=== PATIENT | male | born 1940 | race Caucasian/White ===

== ENCOUNTER 2016-05-31 02:35 | Inpatient (IN) | payer MEDICARE ==
[2016-05-31] VITALS (9 sets, daily range): BP systolic 92–103; BP diastolic 62–71; PULSE 73–124; RESP 18–24; O2SAT 92–100
[~2016-05-31] VITALS: Ht 182.9 cm; Wt 69.9 kg
[2016-05-31] MEDS ORDERED: Polyethylene Glycol (PEG) 17 Gm Powder PO PRN (04:40)
[2016-05-31] MEDS ORDERED: Senna-Docusate 8.6-50 mg Tablet PO PRN (04:40)
[2016-05-31] MEDS ORDERED: Ondansetron 2 mg/mL 2 mL Inj IVPUSH PRN (04:40)
[2016-05-31] MEDS ORDERED: Alum-Mag Hydrox-Simeth 30 mL Suspension PO PRN (04:40)
--- NOTE | 2016-05-31 05:15 | ABG ---
DateTimeAnalyzed 05:10:00 -_ pH ____7.410 - 7.350 7.450 pCO2 ___45.2__ -mmHg 35.0 45.0 pO2 ___99.6__ -mmHg 69.0 116 HCO3- ___28.1__ -mmol/L 22.0 26.0 ABE ____3.5__ -mmol/L -2.0 2.0 tHb ___10.6__ -g/dL O2Hb ___95.3__ -% COHb ____1.4__ -% MetHb ____1.1__ -% sO2 ___97.7__ -% 25.0 FIO2 ___28.0__ -% Drawn By MM - Date/Time Notified____ 05:15:00 -_ Spontaneous_RR ___14.0__ -b/min Liter_Flow ____2.0__ -L/min Oxygen Device 1 _oxy-mask - Notified By MM - Notified Whom dr fuimaono - B 761 -mmHg tO2 ___14.4__ -Vol% Demond test N/A -
[2016-05-31] MEDS ORDERED: WARF5TAB7 PO (06:04)
[2016-05-31] MEDS ORDERED: FLUD0.1T PO (06:04)
[2016-05-31] MEDS ORDERED: OMEP40CA36 PO (06:04)
[2016-05-31] MEDS ORDERED: CITA10TA9 PO (06:04)
[2016-05-31] MEDS ORDERED: SEVE800T7 PO (06:04)
[2016-05-31] MEDS ORDERED: ATOR80TA77 PO (06:04)
[2016-05-31] MEDS ORDERED: WARF2.5T82 PO (06:04)
[2016-05-31] MEDS ORDERED: METO-272 PO (06:04)
--- NOTE | 2016-05-31 06:34 | PCM.HPMED ---
Subjective Date of Service May 31, 2016 Primary Provider: Admitting Physician: Liam Tim MD Primary Care Physician: Gabo Attending Physician: Liam Tim MD Admit Status: Direct Admit (From [facility]), Full Admit, Remote Telemetry Chief Complaint: Confusion with shortness of breathe History of Present Illness: 76 yo man with ESRD on dialysis, Chronic A fib on Coumadin, Pulmonary embolism and Hypertension who was transfer from [facility] for dialysis due to Acute congestive heart failure Patient poor historian with confusion currently. was not present when patient arrived and records gathered from limited documents from [facility]. Nurse reported that patient seems confused and "distant". He was evaluated at the [facility] and had a Chest X ray that showed no pneumonia. Work up at [facility] showed Chest X ray finding consistent with Congestive heart failure. BNP elevated. Patient was not on any diuretic therapy and was a dialysis dependent and a request to transfer was discussed with Dr Ang, Hyster Driver. Review of Systems: unable to obtain as patient was confused Allergies Coded Allergies: ertapenem (Verified Allergy, Severe, Confusion, 05/31/16) benzoin (Verified Allergy, Unknown, Rash,Itching,, 05/31/16) ciprofloxacin (Verified Allergy, Unknown, Gout, 05/31/16) NSAIDS (Non-Steroidal Anti-Inflamma (Verified Adverse Reaction, Unknown, Reduced Kidney Function, 05/31/16) lisinopril (Verified Adverse Reaction, Unknown, Cough, 05/31/16) Home Medications From [facility] records" Coumadin 2.5 mg Sun and Wed then 5 mg M., Fri and Sat Atorvastatin 80 mg HS Metoprolol 25 mg daily Citalopram 10 mg daily Renvela 1600 mg tid Omeprazole 40 mg daily Fludrocortisone 0.1 mg bid PMH Chronic Atrial fibrillation on anticoagulations ESRD on hemodialysis Depression Pulmonary embolism Dyslipidemia . Surgical History Defibrillator placement Back surgery Embolectomy surgery for Pulmonary embolism Family History Unable to obtain due to confusion Social History Hx Alcohol Use: No Hx Substance Use: No Hx Tobacco Use: Yes Smoking Status: Former Smoker Living Arrangement: with Family (with ) Exam Vital Signs Vital Sign - Last Date Time Temp Pulse Resp B/P Pulse Ox O2 Delivery O2 Flow Rate FiO2 05/31/16 04:35 36.9 94 24 98/71 95 Room Air Exam General: Awake but appears confuse and mild respiratory distress Eyes: PERRLA, Scleral Anicteric Mouth: Mouth Normal, Mucous Membranes dry Neck: Supple, no Thyromegaly, trachea central. Chest & Lungs: scattered rhonci Cardiovascular: Normal S1, Normal S2, No Murmurs/Rubs/Gallops, irregularly irregular (No JVD, no peripheral edema) Pulses: Radial (present and equal), Dorsalis Pedi (present and equal) Abdomen: Soft, Non-tender, Non-distended, Normoactive bowel tones. Musculoskeletal: Unremarkable. Normal range of motion, no swollen or erythematous joints Extremities: No edema, no cyanosis, no clubbing. Skin: No rashes. Warm and dry, no erythematous areas Neurological: Grossly neurologically intact, has generalized weakness, Normal Speech, Sensation Intact Lymphatic: Lymph nodes Cervical and Axillary not palpable. Lab and Diagnostics Labs From [facility]: WBC 4.5 Hgb 12.4 Plt 172 Na 142 K 4.5 BUN 45 Cr 4.5 Glucose 104 Liver function test normal BNP > 5000 INR 3.6 Troponin 0.22 CPK 120 ABG pH 7.422 p CO2 46.9 p02 29.6 X-Rays, CTs and MRIs Chest X ray from [facility]: Showed finding consistent with CHF, central vascular and interstitial congestion. Retrocardiac opacity suggestive of atelectasis, edema and small effusion Assessment & Plan 76 yo man with ESRD on dialysis, Chronic A fib on Coumadin, Pulmonary embolism and Hypertension who was transfer from [facility] for dialysis due to Acute congestive heart failure 1. Acute Congestive Heart Failure. Present on admission Chronicity unclear as no echo records available. ABG showed Hypoxia with no CO2 retention with normal pH. Differential diagnosis includes Pneumonia, possible the Chest X ray did not show any infiltrates as patient is intravascular depleted. - monitor on telemetry, monitor weight - unclear if patient responds to diuretic but will pursue dialysis this morning - trending troponin overnight with initial values in normal range - plan to request records from [facility] for review - complete echo requested 2. Acute encephalopathy. Present on admission Etiology unclear but consider Uremia or Metabolic - avoid psychoactive medications due to increased risk of Delirium 3. Endstage renal disease on dialysis Unclear if patient has missed any session. Suspect Hypertensive Nephrosclerosis is the cause - Dr Ang consulted planning for dialysis this morning - No hyperkalemia or acidosis noted 4. Chronic Atrial fibrillation on Coumadin - monitor on telemetry - continue Metoprolol for rate control - Pharmacy to manage daily Coumadin dosing - Acetaminophen as needed for mild pain/fever/headache - Bowel regimen as needed - Antiemetic as needed Patient admitted under inpatient status with expected length of stay > 2 midnights for severity of present symptoms, complexities of treatment plan and risk for adverse event . Resuscitation Status: DNR/DNI:Do Not Resuscitate/Intubate (will discuss with code status) Liam Tim MD May 31, 2016 04:39
[2016-05-31 07:43] LABS: BASOPHILS % (AUTO) 0.2 % (0-3); EOSINOPHILS % (AUTO) 0 % (0-5); MONOCYTES % (AUTO) 7.3 % (4-12); Mean Corpuscular Hemoglobin 27.9 pg (27.0-35.0); Mean Corpuscular Volume 86.3 fL (81-100); Platelet Count 131 bil/L (150-400)
[2016-05-31 07:45] LABS: INR 4.24 ratio
[2016-05-31 08:15] LABS: TROPONIN T 1.34 ug/L (0.0-0.011)
[2016-05-31] MEDS: Sodium Chloride LOK Flush 10 mL Syringe IVFLUSH SCH ×2 (08:30→17:28)
--- NOTE | 2016-05-31 09:01 | DRSVH ---
PROCEDURE: X-RAY CHEST ONE VIEW, PORTABLE ([id number]) INDICATIONS: 76-year-old male in respiratory distress. TECHNIQUE: One view of the chest was acquired. COMPARISON: None available. FINDINGS: Surgical changes and devices: Left chest wall biventricular pacer/ICD is present. Lungs and pleura: No pleural effusions or pneumothorax. There are asymmetric patchy left mid and low er lung opacities. Mediastinum: There is enlargement of the main pulmonary artery. There is moderate cardiomegaly as wel l. There is aortic atherosclerosis. Bones and chest wall: No suspicious bony lesions. There is superior right humeral head migration, w ith narrowed acromiohumeral interval. Overlying soft tissues appear unremarkable. IMPRESSION: 1. Left mid and lower lung scarring/atelectasis, with possible superimposed retrocardiac pneumonia or aspiration. 2. Moderate cardiomegaly. Enlarged main pulmonary artery would be consistent with background pulmonar y arterial hypertension. 3. Changes of right shoulder rotator cuff arthropathy. Dictated by: Stewart Diaz M.D. on 05/31/2016 at 8:57 Approved by: Stewart Diaz M.D. on 05/31/2016 at 9:00
[2016-05-31] MEDS: Albuterol-Ipratropium 3 mL Inhalation Solution NEB SCH ×3 (09:31→21:14)
--- NOTE | 2016-05-31 09:39 | CONS ---
[address] [address] CONSULTATION REPORT PATIENT: LOIS DOHERTY : 1940 MR#: [id number] ADMIT: 05/31/2016 JOB ID: [id number] DATE OF SERVICE: 05/31/2016 RENAL CONSULTATION: HISTORY: The patient is a rather unfortunate 76-year-old white male who has a history of end-stage renal disease. He was transferred from [facility] early this morning where he was admitted for presumed congestive heart failure. Renal consultation is being sought for further management of his end-stage renal disease. The patient is semi comatose and is unable to give any information nor is there any family member here to assist. He is on three times a week dialysis. However, I am not sure what days he dialyzes at or where he dialyzes. I am unsure as to what the etiology of his end-stage renal disease is. He was transferred to initially [facility] for apparently some respiratory problems and decreasing mental status. A chest x-ray was reported as having congestive heart failure. However, there were no other findings noted. His blood pressure is in the 90s, and from reading through his medications, it appears he most likely is chronically hypotensive from either peripheral neuropathy and for severe systolic heart failure. Unfortunately, there is little other information as far as the events leading up to his hospitalization. PAST MEDICAL HISTORY: Is significant for: 1. End-stage renal disease-dialysis dependent. 2. Atrial fibrillation. 3. Pulmonary embolism. 4. Past medical history is also significant for coronary artery disease and it appears that he has had open-heart surgery in the past. PAST SURGICAL HISTORY: Is significant for: 1. Some type of back surgery. 2. AICD placement. 3. Pneumonectomy. 4. Shoulder surgery. ALLERGIES: He is allergic to NONSTEROIDALS, BENZOINS, CIPROFLOXACIN, ERTAPENEM and LISINOPRIL with unknown reactions. SOCIAL HISTORY: He denies the current use of alcohol, tobacco or illicit drugs and lives with his and apparently has been in some declining health. FAMILY HISTORY: Is unobtainable. MEDICATIONS: At time of admission included atorvastatin, citalopram, Megace, , warfarin, cortisone, metoprolol and omeprazole. PHYSICAL EXAMINATION: Revealed a chronically ill, cachectic appearing 76-year-old gentleman who was minimally responsive to painful stimuli. HEENT examination is remarkable for pale sclerae. Neck is supple without adenopathy or thyromegaly. There was some evjn-nn-adoeajsu jugular venous distention at 45 degrees. Lungs showed scattered rhonchi, much more pronounced on the right as compared to the left with some diffuse end-expiratory wheezes noted. Heart was irregularly regular. Abdomen is soft with some diminished bowel sounds. There was no tenderness, rebound, guarding, masses or hepatosplenomegaly. Extremities did not show any evidence of any clubbing, cyanosis or edema. Skin turgor is fair and there is no evidence of any rashes. Her most recent lab obtained late yesterday showed a sodium of 142, potassium 4.5, chloride of 101, bicarbonate of 30, BUN and creatinine were 45 and 4.5, respectively. His glucose is 104. Liver function studies were remarkable for elevated alkaline phosphatase at 243 and a lactic acid of 2.0. IMPRESSION: 1. End-stage renal disease-dialysis dependent. 2. Pulmonary congestion most likely secondary to either bronchitis or pneumonia. 3. Acute congestive heart failure. RECOMMENDATION: I am very concerned as to his pulmonary status and would like to get a chest x-ray, as his lung sounds are more consistent with a pneumonic or a bronchitic process rather than congestive heart failure. I would also like to order DuoNeb treatments and try to enhance his pulmonary toilet. I will also make arrangements for him to be dialyzed today for 3.5 hours on a Revaclear dialyzer, 3 potassium bath, no heparin and try to take 1-2 L of fluid off. Once again, I would like to thank you for allowing me to participate in the care of this rather unfortunate patient. I will be following him closely with you.
[2016-05-31] MEDS ORDERED: MIDO5TAB PO (10:41)
[2016-05-31] MEDS ORDERED: DIPH1TAB PO (10:41)
[2016-05-31] MEDS ORDERED: vit b12 (10:41)
[2016-05-31] MEDS ORDERED: CYAN500 PO (10:55)
[2016-05-31] MEDS ORDERED: Piperacillin-Tazo 3.375 Gm Inj 3.375 GM in Dextrose 5% Minibag Plus 50 ML IV ONE (20:30)
[2016-06-01] VITALS (10 sets, daily range): BP systolic 95–109; BP diastolic 47–71; PULSE 67–145; RESP 16–24; O2SAT 90–96
[2016-06-01] MEDS: Sodium Chloride LOK Flush 10 mL Syringe IVFLUSH SCH ×4 (00:35→21:35)
[2016-06-01] MEDS: Albuterol-Ipratropium 3 mL Inhalation Solution NEB SCH ×4 (01:48→20:30)
[2016-06-01] MEDS: MeTOProlol XL 25 mg ER24 Tablet PO SCH (08:18)
[2016-06-01] MEDS ORDERED: Piper-Tazo 3.375 Gm/50 mL D5W Minibag Plus - Q8H over 4 hrs IV SCH ×2 (08:30)
[2016-06-01 08:33] LABS: BASOPHILS % (AUTO) 0.2 % (0-3); EOSINOPHILS % (AUTO) 0.2 % (0-5); MONOCYTES % (AUTO) 8.1 % (4-12); Mean Corpuscular Hemoglobin 27.8 pg (27.0-35.0); Mean Corpuscular Volume 86.8 fL (81-100); NEUTROPHILS % (AUTO) 80.9 % (40-74); Platelet Count 123 bil/L (150-400)
[2016-06-01 08:36] LABS: INR 4.2 ratio
[2016-06-01] MEDS: Pantoprazole 40 mg ER24 Tablet PO SCH (08:44)
[2016-06-01 09:24] LABS: TROPONIN T 1.42 ug/L (0.0-0.011)
--- NOTE | 2016-06-01 10:44 | PCM.PNNEPH ---
Subjective Date of Service Jun 01, 2016 Subjective The patient is considerably more alert and awake, interactive and conversational. He denies any chest pain, shortness of breath, cough or wheezing. He denies any increasing abdominal girth this is apparent on physical examination. Reviewed his echo with the bedside and he appears to have an ejection fraction of about 20-25%. Exam Vital Signs Vital Sign - Last Date Time Temp Pulse Resp B/P Pulse Ox O2 Delivery O2 Flow Rate FiO2 06/01/16 10:23 Supplement Oxygen 06/01/16 10:17 145 06/01/16 07:14 24 96 2.00 06/01/16 06:11 36.7 95/61 Intake and Output 05/31/16 05/31/16 06/01/16 Cumulative From/Thru 15:00 23:00 07:00 05/31/16 04:35 - 06/01/16 06:38 Intake Total 50 ml 250 ml 300 ml Output Total 2000 ml 0 ml 2000 ml Balance -1950 ml 250 ml -1700 ml Intake Oral 50 ml 250 ml 300 ml Output Urine Total 0 ml 0 ml 0 ml Ultrafiltrate 2000 ml 2000 ml # Bowel Movements 0 0 Exam Neck is supple without adenopathy, thyromegaly, but he does have some mild to moderate jugular venous distention at 75. Lungs showed some bibasilar rales with diminished breath sounds bilaterally. Heart sounds are distant. Abdomen is soft but distended. There is evidence of a questionable fluid wave. The liver is pulsatile and there is evidence of problems with reflux. Extremities showed some mild pitting edema bilaterally in the distal lower extremities. Lab and Diagnostics Result Diagram: 06/01/16 0730 06/01/16 0730 X-Rays, CTs and MRIs Chest X ray from [facility]: Showed finding consistent with CHF, central vascular and interstitial congestion. Retrocardiac opacity suggestive of atelectasis, edema and small effusion Plan Impression Impression end-stage renal disease dialysis dependent #2 decompensated congestive heart failure with possible early anasarca and elevated right-sided pressures. Recommendations #1 I am concerned about his elevated right-sided pressures and possible ascites. I will go ahead and order an ultrasound to further evaluate if he has any extraordinary visit can be tapped. Otherwise follow-up arrangements for his routine dialysis tomorrow. Feliciano Ang DO Jun 01, 2016 10:44
--- NOTE | 2016-06-01 10:47 | DRSVH ---
[facility] [address] [place] [address] Echocardiogram Report Name: LOIS DOHERTY RStudy Date: 06/01/2016 Height: 72 in Hospital Exam Location: [facility] Weight: 165 lb Gender: Male BSA: 2.0 m2 : 1940 Age: 76 yrs BP: 95/61 mmHg Reason For Study: HEART FAILURE Ordering Physician: [facility] Performed By: Ricki Fox Referring Physician: Dr. Portillo Gould Interpretation Summary There is moderate concentric left ventricular hypertrophy. The left ventricle is normal in size. Left ventricular systolic function is severely reduced. The ejection fraction is estimated to be 15-20%. There is severe global hypokinesis of the left ventricle. The right ventricle is mildly dilated. There is a pacemaker lead in the right ventricle. Right ventricular systolic function is moderate to severely reduced. The right ventricular systolic pressure is estimated at 42 mmHg assuming a right atrial pressure of 15 mm Hg. There is severe biatrial enlargement. There is mild to moderate mitral regurgitation. The aortic valve is moderately calcified. There is mild to moderate aortic stenosis. The peak aortic velocity is 2.12 m/sec. The calculated aortic valve area is 1.4 cm2. There is moderate tricuspid regurgitation. might be overstimated due to decrease cardiac output. Consider repeating echo in 2-3 months to reassess LVEF and . The aortic root is normal size. There is a moderate left-sided pleural effusion. Incidental finding of abdominal ascites is noted. Procedure: A two-dimensional transthoracic echocardiogram with color flow and Doppler was performed. The study quality was technically good. There is no prior echocardiogram noted for this patient. The patient was in atrial fibrillation with rapid ventricular response during the exam with a heart rate exceeding 100 bpm. The patient had a heart rate of 112-157 beats per minute. Left Ventricle: The left ventricle is normal in size. There is moderate concentric left ventricular hypertrophy. Left ventricular systolic function is severely reduced. The ejection fraction is estimated to be 15-20%. There is severe global hypokinesis of the left ventricle. Diastolic function could not be accurately assessed due to tachycardia. Right Ventricle: The right ventricle is mildly dilated. There is a pacemaker lead in the right ventricle. Right ventricular systolic function is moderate to severely reduced. Atria: There is severe biatrial enlargement. The interatrial septum is intact with no evidence for an atrial septal defect. Mitral Valve: There is mild mitral annular calcification. There is mild to moderate mitral regurgitation. Aortic Valve: The aortic valve is trileaflet. The aortic valve is moderately calcified. There is mild to moderate aortic stenosis. The peak aortic velocity is 2.12 m/sec. The aortic valve mean gradient is 18.1 mmHg. The calculated aortic valve area is 1.4 cm2. There is trace aortic regurgitation. Tricuspid Valve: The tricuspid valve leaflets are thin and pliable. There is moderate tricuspid regurgitation. The right ventricular systolic pressure is estimated at 42 mmHg assuming a right atrial pressure of 15 mm Hg. Pulmonic Valve: The pulmonic valve is normal in structure and function. There is trace pulmonic regurgitation. Great Vessels: The aortic root is normal size. The dimensions of the ascending aorta are normal. The pulmonary artery is normal size. The IVC is dilated (diameter is greater than 2.1 cm) and it collapses less than 50% with a sniff. This suggests a high right atrial pressure of 15 mm Hg. Pericardium/ Pleura There is no pericardial effusion. There is a moderate left-sided pleural effusion. Incidental finding of abdominal ascites is noted. MMode/2D Measurements & Calculations LVIDd: 4.3 cm LA dimension RA long axis: 6.9 cm LVOT diam: 2.2 cm LVIDs: 3.5 cm AoV Openin.82 cm FS: 20.1 % LA A2 area RA area: 35.0 cm Ao root diam: 3.9 cm EPSS: 0.18 cm RA vol: 151.5 ml Aortic Jxn: 2.7 cm IVSd: 1.6 cm RA : 77.1 ml/m2 asc Aorta Diam: 3.4 cm LVPWd: 1.7 cm LA A4 area LA length (vol) LA vol: 161.5 ml LA vol index IVC diam: 3.2 cm EDV(MOD-sp2) ATUL (plan) LV parsons. diameter/BSA LV sys. diameter/BSA : 1.4 cm2 (cm/m^2): 2.2 (cm/m^2): 1.8 RVD1 (basal) RVD2 (mid) : 4.2 cm Doppler Measurements & Calculations Ao V2 max MV E max jerzy MV E/A: 76.0 TR max jerzy : 212.4 cm/sec : 73.1 cm/sec Med Peak E' Jerzy : 261.2 cm/sec Ao max PG MV A max jerzy TR max PG : 18.1 mmHg : 0.96 cm/sec E/E' med: 19.8 : 27.3 mmHg Ao mean PG Lat Peak E' Jerzy PA V2 max : 11.2 mmHg : 54.7 cm/sec LVOT Max Jerzy E/E' lat: 13.0 PA mean PG : 76.9 cm/sec E/e' average : 0.82 mmHg ATUL(I,D): 1.4 cm PA Accel Time sev ratio : 0.07 sec MV dec time Ao V2 mean LV V1 max PG MR PISA radius : 0.13 sec : 161.2 cm/sec Ao V2 VTI: 31.4 cm LV V1 VTI ATUL(V,D): 1.4 cm2 : 11.2 cm PA V2 mean ATUL indexed to BSA : 44.6 cm/sec (cm^2/m^2): 0.71 PA pr(Accel) : 51.6 mmHg Reading Physician:MAGY
--- NOTE | 2016-06-01 14:29 | DRSVH ---
PROCEDURE: US ABDOMEN, LIMITED ([id number]) INDICATIONS: CHF and quantify ascites TECHNIQUE: Real-time focused scanning was performed of the abdomen, with image documentation. COMPARISON: None. FINDINGS: Trace ascites within the right upper quadrant otherwise no ascites is present. IMPRESSION: Trace ascites. Dictated by: Sunny Ch RRA Interpreted: Billie Murillo MD on 06/01/2016 at 14:28 Transcribed by: STEVEN on 06/01/2016 at 14:29 Approved by: Billie Murillo M.D. on 06/01/2016 at 17:43
[2016-06-01] MEDS ORDERED: MeTOProlol 1 mg/mL 5 mL Inj IVPUSH ONE (14:45)
[2016-06-01] MEDS ORDERED: MeTOProlol 1 mg/mL 5 mL Inj ONE (15:12)
--- NOTE | 2016-06-01 15:49 | PCM.CONPHA ---
Subjective Confusion with shortness of breathe Reason for Pharmacy Consult: Anticoagulation Management Assessment/Plan Assessment/Plan Warfarin Management by Pharmacy Indication: Afib Home Dose: 2.5mg Mon/Mon; 5mg AOD INR Goal: 2-3 Duration: Unknown Wt: 74.7 kg Anticoagulation Trends (day) 1 2 RPh DFF DFF Date -Jun 01-May INR 4.24 4.2 INR change -0.04 Warf Dose HOLD HOLD Assessment/Plan - Supratherapeutic INR on admit in setting of decompensated HF -Will continue to hold warfarin this evening. -Pharmacy to monitor INR/CBC/signs of bleeding while inpatient. Thanks, Harjeet Murillo Pharm.D. Harjeet Murillo Jun 01, 2016 15:49
--- NOTE | 2016-06-01 15:52 | PCM.PNMED ---
Subjective Date of Service Jun 01, 2016 Subjective denies any pain or discomfort. no SOB. Exam Vital Signs Vital Sign - Last Date Time Temp Pulse Resp B/P Pulse Ox O2 Delivery O2 Flow Rate FiO2 06/01/16 15:24 130 22 96 Room Air 06/01/16 15:22 36.4 100/68 06/01/16 07:14 2.00 Intake and Output 05/31/16 05/31/16 06/01/16 Cumulative From/Thru 15:00 23:00 07:00 05/31/16 04:35 - 06/01/16 06:38 Intake Total 50 ml 250 ml 300 ml Output Total 2000 ml 0 ml 2000 ml Balance -1950 ml 250 ml -1700 ml Intake Oral 50 ml 250 ml 300 ml Output Urine Total 0 ml 0 ml 0 ml Ultrafiltrate 2000 ml 2000 ml # Bowel Movements 0 0 General: Alert, Oriented X3, Cooperative, No Acute Distress Head: Normal Eyes: Scleral Anicteric Mouth: Mucous Membr Moist/[place] Neck: Supple Chest & Lungs: Chest Wall Normal, Coarse breath sounds (mild upper resp) Cardiovascular: Regular Rate/Rhythm Abdomen: Non-tender, Non-distended, Normoactive bowel tones, Soft Extremities: Other (1+ edema in LE bilat) Neurological: Grossly Neurologically Intact, Normal Speech IVs and Medications Medications Reviewed: Medications were reviewed in detail Lab and Diagnostics Result Diagram: 06/01/1630 06/01/16 0730 X-Rays, CTs and MRIs Chest X ray from [place]: Showed finding consistent with CHF, central vascular and interstitial congestion. Retrocardiac opacity suggestive of atelectasis, edema and small effusion Date of Service: 05/31/16 0812 PROCEDURE: X-RAY CHEST ONE VIEW, PORTABLE ([id number]) IMPRESSION: 1. Left mid and lower lung scarring/atelectasis, with possible superimposed retrocardiac pneumonia or aspiration. 2. Moderate cardiomegaly. Enlarged main pulmonary artery would be consistent with background pulmonary arterial hypertension. 3. Changes of right shoulder rotator cuff arthropathy. Dictated by: Stewart Diaz M.D. on 05/31/2016 at 8:57 Approved by: Stewart Diaz M.D. on 05/31/2016 at 9:00 Cardiac Echo Impressions Date of Service: 06/01/16 0436 Echocardiogram Report Interpretation Summary There is moderate concentric left ventricular hypertrophy. The left ventricle is normal in size. Left ventricular systolic function is severely reduced. The ejection fraction is estimated to be 15-20%. There is severe global hypokinesis of the left ventricle. The right ventricle is mildly dilated. There is a pacemaker lead in the right ventricle. Right ventricular systolic function is moderate to severely reduced. The right ventricular systolic pressure is estimated at 42 mmHg assuming a right atrial pressure of 15 mm Hg. There is severe biatrial enlargement. There is mild to moderate mitral regurgitation. The aortic valve is moderately calcified. There is mild to moderate aortic stenosis. The peak aortic velocity is 2.12 m/sec. The calculated aortic valve area is 1.4 cm2. There is moderate tricuspid regurgitation. might be overstimated due to decrease cardiac output. Consider repeating echo in 2-3 months to reassess LVEF and . The aortic root is normal size. There is a moderate left-sided pleural effusion. Incidental finding of abdominal ascites is noted. Reading Physician:MAGY Additional Diagnostics: Date of Service: 06/01/16 1044 PROCEDURE: US ABDOMEN, LIMITED ([id number]) IMPRESSION: Trace ascites. Dictated by: Sunny Ch RRA Interpreted: Billie Murillo MD on 06/01/2016 at 14:28 Transcribed by: STEVEN on 06/01/2016 at 14:29 Assessment & Plan 76 yo man with ESRD on dialysis, Chronic A fib on Coumadin, Pulmonary embolism and Hypertension who was transfer from [facility] for dialysis due to Acute congestive heart failure # Acute systolic congestive Heart Failure. Present on admission - clinically improving with dialysis - Echo showing EF 15-20% - further fluid management per nephrology and dialysis # Acute RSV infection - c/w supportive care # Acute NSTEMI - ? if Trop elevated 2ndry to acute ischemia from respiratory status and amplified by underling ESRD - discussed pt's case and echo findings with cardiology - will proceed with pharmacologic stress test per cardiology recs and f/u #Endstage renal disease on dialysis - appreciate nephrology consult. will f/u w/ recs - further dialysis per nephrology # ? acute aspiration pneumonia. poa - no significant leukocytosis. - procalcitonin only mildly elevated despite ESRD - suspect pulmonary symptoms likely due to RSV - stop Abx and f/u clinically # Acute metabolic encephalopathy. Present on admission. Resolved - avoid psychoactive medications due to increased risk of Delirium # Chronic Atrial fibrillation on Coumadin - monitor on telemetry - continue Metoprolol for rate control - Pharmacy to manage daily Coumadin dosing Dispo: 2-3 days VTE Mechanical Devices: Intermittant Pneumatic CD Resuscitation Status: DNR/DNI:Do Not Resuscitate/Intubate (will discuss with code status) Polo Nair Jun 01, 2016 15:52
[2016-06-01] MEDS: Calcium Carbonate (Oyster Shell) 500 mg Tablet PO SCH (17:51)
[2016-06-02] VITALS (14 sets, daily range): BP systolic 84–117; BP diastolic 50–78; PULSE 62–139; RESP 18–20; O2SAT 91–98
[2016-06-02] MEDS: Albuterol-Ipratropium 3 mL Inhalation Solution NEB SCH ×4 (03:11→19:42)
[2016-06-02] MEDS: Pantoprazole 40 mg ER24 Tablet PO SCH (06:20)
[2016-06-02 07:13] LABS: Mean Corpuscular Hemoglobin 27.9 pg (27.0-35.0); Mean Corpuscular Volume 85.7 fL (81-100)
[2016-06-02 07:25] LABS: INR 4.78 ratio
[2016-06-02] MEDS: Calcium Carbonate (Oyster Shell) 500 mg Tablet PO SCH ×3 (08:00→17:40)
[2016-06-02] MEDS: MeTOProlol XL 25 mg ER24 Tablet PO SCH (08:30)
[2016-06-02] MEDS: Sodium Chloride LOK Flush 10 mL Syringe IVFLUSH SCH ×3 (08:46→20:39)
--- NOTE | 2016-06-02 11:50 | PCM.PNNEPH ---
Subjective Date of Service Jun 02, 2016 Subjective The patient continues to be more alert and interactive compared to his date of admission. He denies any chest pain, shortness of breath, cough or wheezing. Exam Vital Signs Vital Sign - Last Date Time Temp Pulse Resp B/P Pulse Ox O2 Delivery O2 Flow Rate FiO2 06/02/16 09:10 88 06/02/16 08:09 36.8 20 98/66 94 Room Air 06/02/16 03:12 2.00 Intake and Output 06/01/16 06/01/16 06/02/16 Cumulative From/Thru 15:00 23:00 07:00 05/31/16 04:35 - 06/02/16 06:40 Intake Total 1160 ml 200 ml 1660 ml Output Total 0 ml 2000 ml Balance 1160 ml 200 ml -340 ml Intake Oral 1160 ml 200 ml 1660 ml TPN/PPN 0 ml 0 ml Output Urine Total 0 ml 0 ml Ultrafiltrate 2000 ml # Bowel Movements 2 2 4 Exam Neck is supple without adenopathy thyromegaly or jugular venous distention. Lungs are clear to auscultation. Heart is regular rhythm with a soft systolic murmur. Abdomen is soft without any tenderness or rebound guarding masses or hepatosplenomegaly. Extremities show any evidence of any clubbing cyanosis or edema. Lab and Diagnostics Result Diagram: 06/02/1663406/02/1635 X-Rays, CTs and MRIs Chest X ray from [place]: Showed finding consistent with CHF, central vascular and interstitial congestion. Retrocardiac opacity suggestive of atelectasis, edema and small effusion Date of Service: 05/31/16 0812 PROCEDURE: X-RAY CHEST ONE VIEW, PORTABLE ([id number]) IMPRESSION: 1. Left mid and lower lung scarring/atelectasis, with possible superimposed retrocardiac pneumonia or aspiration. 2. Moderate cardiomegaly. Enlarged main pulmonary artery would be consistent with background pulmonary arterial hypertension. 3. Changes of right shoulder rotator cuff arthropathy. Dictated by: Stewart Diaz M.D. on 05/31/2016 at 8:57 Approved by: Stewart Diaz M.D. on 05/31/2016 at 9:00 Cardiac Echo Impressions Date of Service: 06/01/16 0436 Echocardiogram Report Interpretation Summary There is moderate concentric left ventricular hypertrophy. The left ventricle is normal in size. Left ventricular systolic function is severely reduced. The ejection fraction is estimated to be 15-20%. There is severe global hypokinesis of the left ventricle. The right ventricle is mildly dilated. There is a pacemaker lead in the right ventricle. Right ventricular systolic function is moderate to severely reduced. The right ventricular systolic pressure is estimated at 42 mmHg assuming a right atrial pressure of 15 mm Hg. There is severe biatrial enlargement. There is mild to moderate mitral regurgitation. The aortic valve is moderately calcified. There is mild to moderate aortic stenosis. The peak aortic velocity is 2.12 m/sec. The calculated aortic valve area is 1.4 cm2. There is moderate tricuspid regurgitation. might be overstimated due to decrease cardiac output. Consider repeating echo in 2-3 months to reassess LVEF and . The aortic root is normal size. There is a moderate left-sided pleural effusion. Incidental finding of abdominal ascites is noted. Reading Physician:MAGY Plan Impression Impression #1 end-stage renal disease dialysis dependent Recommendations #1 patient dialyzed today for 4 hours on a revaclear dialyzer, 3 potassium bath 1500 units of heparin as a loading dose and 500 and will take 2 L of fluid off. Feliciano Ang DO Jun 02, 2016 11:50
--- NOTE | 2016-06-02 17:19 | PCM.PNMED ---
Subjective Date of Service Jun 02, 2016 Subjective denies any pain or discomfort. Exam Vital Signs Vital Sign - Last Date Time Temp Pulse Resp B/P Pulse Ox O2 Delivery O2 Flow Rate FiO2 06/02/16 16:19 36.5 68 18 95/61 92 Room Air 06/02/16 03:12 2.00 Intake and Output 06/01/16 06/01/16 06/02/16 Cumulative From/Thru 15:00 23:00 07:00 05/31/16 04:35 - 06/02/16 06:40 Intake Total 1160 ml 200 ml 1660 ml Output Total 0 ml 2000 ml Balance 1160 ml 200 ml -340 ml Intake Oral 1160 ml 200 ml 1660 ml TPN/PPN 0 ml 0 ml Output Urine Total 0 ml 0 ml Ultrafiltrate 2000 ml # Bowel Movements 2 2 4 Exam General: Alert, Oriented X3, Cooperative, No Acute Distress Head: Normal Eyes: Scleral Anicteric Mouth: Mucous Membr Moist/[place] Neck: Supple Chest & Lungs: Chest Wall Normal, Coarse breath sounds (mild upper resp) Cardiovascular: Regular Rate/Rhythm Abdomen: Non-tender, Non-distended, Normoactive bowel tones, Soft Extremities: Other (1+ edema in LE bilat) Neurological: Grossly Neurologically Intact, Normal Speech IVs and Medications Medications Reviewed: Medications were reviewed in detail Lab and Diagnostics Result Diagram: 06/02/1663406/02/1635 X-Rays, CTs and MRIs Chest X ray from [place]: Showed finding consistent with CHF, central vascular and interstitial congestion. Retrocardiac opacity suggestive of atelectasis, edema and small effusion Date of Service: 05/31/16 0812 PROCEDURE: X-RAY CHEST ONE VIEW, PORTABLE ([id number]) IMPRESSION: 1. Left mid and lower lung scarring/atelectasis, with possible superimposed retrocardiac pneumonia or aspiration. 2. Moderate cardiomegaly. Enlarged main pulmonary artery would be consistent with background pulmonary arterial hypertension. 3. Changes of right shoulder rotator cuff arthropathy. Dictated by: Stewart Diaz M.D. on 05/31/2016 at 8:57 Approved by: Stewart Diaz M.D. on 05/31/2016 at 9:00 Cardiac Echo Impressions Date of Service: 06/01/16 0436 Echocardiogram Report Interpretation Summary There is moderate concentric left ventricular hypertrophy. The left ventricle is normal in size. Left ventricular systolic function is severely reduced. The ejection fraction is estimated to be 15-20%. There is severe global hypokinesis of the left ventricle. The right ventricle is mildly dilated. There is a pacemaker lead in the right ventricle. Right ventricular systolic function is moderate to severely reduced. The right ventricular systolic pressure is estimated at 42 mmHg assuming a right atrial pressure of 15 mm Hg. There is severe biatrial enlargement. There is mild to moderate mitral regurgitation. The aortic valve is moderately calcified. There is mild to moderate aortic stenosis. The peak aortic velocity is 2.12 m/sec. The calculated aortic valve area is 1.4 cm2. There is moderate tricuspid regurgitation. might be overstimated due to decrease cardiac output. Consider repeating echo in 2-3 months to reassess LVEF and . The aortic root is normal size. There is a moderate left-sided pleural effusion. Incidental finding of abdominal ascites is noted. Reading Physician:AM Assessment & Plan 76 yo man with ESRD on dialysis, Chronic A fib on Coumadin, Pulmonary embolism and Hypertension who was transfer from [facility] for dialysis due to Acute congestive heart failure # Acute systolic congestive Heart Failure. Present on admission - clinically improving with dialysis - Echo showing EF 15-20% - further fluid management per nephrology and dialysis # Acute RSV infection - c/w supportive care # Acute NSTEMI - ? if Trop elevated 2ndry to acute ischemia from respiratory status and amplified by underling ESRD - discussed pt's case and echo findings with cardiology on 06/01. recommendations were for pharmacologic stress test per cardiology but now on hold pending official consult. #Endstage renal disease on dialysis - appreciate nephrology consult. will f/u w/ recs - further dialysis per nephrology # ? acute aspiration pneumonia. poa - no significant leukocytosis. - procalcitonin only mildly elevated despite ESRD - suspect pulmonary symptoms likely due to RSV - stopped Abx and f/u clinically # Acute metabolic encephalopathy. Present on admission. Resolved - avoid psychoactive medications due to increased risk of Delirium # Chronic Atrial fibrillation on Coumadin - monitor on telemetry - continue Metoprolol for rate control - Pharmacy to manage daily Coumadin dosing Dispo: 1-2 days VTE Mechanical Devices: Intermittant Pneumatic CD Resuscitation Status: DNR/DNI:Do Not Resuscitate/Intubate (will discuss with code status) Polo Nair Jun 02, 2016 17:19
[2016-06-03] VITALS (12 sets, daily range): BP systolic 91–116; BP diastolic 63–74; PULSE 83–131; RESP 16–20; O2SAT 92–99
[2016-06-03] MEDS: Albuterol-Ipratropium 3 mL Inhalation Solution NEB SCH ×4 (02:30→20:12)
[2016-06-03] MEDS: Pantoprazole 40 mg ER24 Tablet PO SCH (05:40)
[2016-06-03 06:30] LABS: INR 4.07 ratio
[2016-06-03] MEDS: Calcium Carbonate (Oyster Shell) 500 mg Tablet PO SCH ×3 (08:00→17:21)
[2016-06-03] MEDS: MeTOProlol XL 25 mg ER24 Tablet PO SCH (08:30)
[2016-06-03] MEDS: Sodium Chloride LOK Flush 10 mL Syringe IVFLUSH SCH ×2 (08:52→17:22)
--- NOTE | 2016-06-03 12:27 | PCM.PHAPRO ---
Progress Date of Service: Jun 03, 2016 Warfarin dosing Date Jun 01-Jun 02-Jun 03-May INR 4.24 4.2 4.78 4.07 INR change -0.04 0.58 -0.71 Warf Dose HOLD HOLD HOLD HOLD A/ Patient INR=4.07 is supertherapuetic today P/Will continue to hold warfarin Jered Jacques [facility] Jun 03, 2016 12:27
[2016-06-03] MEDS ORDERED: MeTOProlol XL 25 mg ER24 Tablet PO ONE (13:05)
--- NOTE | 2016-06-03 13:46 | PCM.PNNEPH ---
Subjective Date of Service Jun 03, 2016 Subjective Patient's continuing to improve however his cough is increased and is much more productive. His mental status is back to baseline and he offers no new complaints other than the cough. Exam Vital Signs Vital Sign - Last Date Time Temp Pulse Resp B/P Pulse Ox O2 Delivery O2 Flow Rate FiO2 06/03/16 11:14 36.4 131 20 116/67 94 Room Air 06/02/16 03:12 2.00 Intake and Output 06/02/16 06/02/16 06/03/16 Cumulative From/Thru 15:00 23:00 07:00 05/31/16 04:35 - 06/03/16 06:40 Intake Total 886 ml 0 ml 2546 ml Output Total 2000 ml 0 ml 4000 ml Balance -2000 ml 886 ml 0 ml -1454 ml Intake Oral 886 ml 0 ml 2546 ml TPN/PPN 0 ml Output Urine Total 0 ml 0 ml Ultrafiltrate 2000 ml 4000 ml # Bowel Movements 1 1 6 Exam Neck is supple without adenopathy thyromegaly or jugular venous distention. Lungs are clear to auscultation. Heart is regular and rhythmical with a soft systolic murmur. Abdomen soft without any tenderness rebound guarding masses or hepatosplenomegaly. She will restart shortly evidence of any clubbing cyanosis or edema. Lab and Diagnostics Result Diagram: 06/02/1663406/02/16634 X-Rays, CTs and MRIs Chest X ray from [place]: Showed finding consistent with CHF, central vascular and interstitial congestion. Retrocardiac opacity suggestive of atelectasis, edema and small effusion Date of Service: 05/31/16 0812 PROCEDURE: X-RAY CHEST ONE VIEW, PORTABLE ([id number]) IMPRESSION: 1. Left mid and lower lung scarring/atelectasis, with possible superimposed retrocardiac pneumonia or aspiration. 2. Moderate cardiomegaly. Enlarged main pulmonary artery would be consistent with background pulmonary arterial hypertension. 3. Changes of right shoulder rotator cuff arthropathy. Dictated by: Stewart Diaz M.D. on 05/31/2016 at 8:57 Approved by: Stewart Diaz M.D. on 05/31/2016 at 9:00 Cardiac Echo Impressions Date of Service: 06/01/16 0436 Echocardiogram Report Interpretation Summary There is moderate concentric left ventricular hypertrophy. The left ventricle is normal in size. Left ventricular systolic function is severely reduced. The ejection fraction is estimated to be 15-20%. There is severe global hypokinesis of the left ventricle. The right ventricle is mildly dilated. There is a pacemaker lead in the right ventricle. Right ventricular systolic function is moderate to severely reduced. The right ventricular systolic pressure is estimated at 42 mmHg assuming a right atrial pressure of 15 mm Hg. There is severe biatrial enlargement. There is mild to moderate mitral regurgitation. The aortic valve is moderately calcified. There is mild to moderate aortic stenosis. The peak aortic velocity is 2.12 m/sec. The calculated aortic valve area is 1.4 cm2. There is moderate tricuspid regurgitation. might be overstimated due to decrease cardiac output. Consider repeating echo in 2-3 months to reassess LVEF and . The aortic root is normal size. There is a moderate left-sided pleural effusion. Incidental finding of abdominal ascites is noted. Reading Physician:MAGY Plan Impression Impression #1 end-stage renal disease dialysis dependent #2 pneumonia Recommendations #1 patient is scheduled to have dialysis treatment tomorrow. Feliciano Ang DO Jun 03, 2016 13:46
--- NOTE | 2016-06-03 14:16 | CONS ---
[address] [address] CONSULTATION REPORT PATIENT: LOIS DOHERTY : 1940 MR#: [id number] ADMIT: 05/31/2016 JOB ID: [id number] DATE OF SERVICE: 06/03/2016 CARDIOLOGY CONSULTATION: CHIEF COMPLAINT: I was asked by the hospitalist team to consult on this patient given cardiomyopathy and elevated troponin. HISTORY OF PRESENT ILLNESS: The patient is a 76-year-old man with past medical history significant for atrial fibrillation on anticoagulation. Apparently has a history of hypertension as well as possible pulmonary embolism. He is also on dialysis. He came to this hospital. He was admitted with congestive heart failure. In the interim, he has been found to have respiratory syncytial virus and he has been treating for this as well. Speaking with the patient and his prior to admission, he started feeling poorly. He has a low-grade fever, started having cough and breathing issues and then felt very weak. He came to the ED and was transferred here from [facility] for admission with heart failure. He has an elevated troponin although he has no chest pain. No chest pressure. His troponin has remained flat throughout his hospital stay. Per review of limited records that I have now obtained, back in the early part of 2014 he had [id number] LVH and normal LV systolic function. There was no significant valvular disease appreciated at that time. In May of 2015, a cardiac catheterization performed given cardiomyopathy. This did not reveal any obstructive disease. It is felt that his cardiomyopathy potentially could be related to atrial fibrillation. He is followed by a chief controller center at [facility] and unfortunately I do not have any additional records on this patient. Since he has been here, he says he feels a little better but he cannot gauge how much better he feels. He denies chest pressure, chest tightness. He is still having a little bit of coughing and shortness of breath. PAST MEDICAL HISTORY/PROBLEM LIST: 1. Atrial fibrillation on Coumadin. 2. End-stage renal disease, on dialysis (he tells me that he had renal issues for years but went on dialysis about two years ago). 3. Depression. 4. Reported history of pulmonary embolism. 5. Dyslipidemia. MEDICATIONS AT HOME: Included Coumadin, atorvastatin, metoprolol, citalopram, Renvela, omeprazole and fludrocortisone. ALLERGIES: To ERTAPENEM, BENZALIN, CIPROFLOXACIN, NSAIDS and LISINOPRIL. SOCIAL HISTORY: Former tobacco use. No alcohol use. FAMILY HISTORY: No early coronary artery disease. REVIEW OF SYSTEMS: Overall health: He had fevers and some chills prior to admission but none at this time. GI: No problems with ulcers or blood in his stool. : He is on hemodialysis. He says he has chronic renal issues for a good part of his life. Pulmonary: Some increased shortness of breath and coughing. Endocrine: No heat or cold intolerance. Musculoskeletal: Some toe pain. ENT: No difficulty swallowing. No sore throat. Heme: No easy bruising or bleeding. Derm: No new rashes or skin breakdown. Neuro: No chronic headaches. Ophtho: No acute vision changes. Psych: No acute issues. All other review of systems on a 12 point review of system are negative. PHYSICAL EXAMINATION: Blood pressure 116/67, heart rate is 131 as his beta darrian had been held for possible stress testing. He is afebrile and sats are 94% on room air. General: In no acute distress. Speaking in full sentences without apparent shortness of breath. Head and neck examination: Normocephalic, atraumatic. Neck: I do not appreciate obvious carotid bruits. Heart examination: Irregular without obvious murmurs, gallops, rubs appreciated. Lungs: Coarse breath sounds throughout. Abdomen: Soft, nondistended. Back: No CVA tenderness to palpation. Extremities: Warm. No appreciable edema. 2+ DP pulses appreciated. Skin without obvious breakdown appreciated. Neuro: He is alert and interactive. Gait is not tested. Psych: Appropriate mood and affect. ENT: Mucous membranes moist. No erythema. Ophtho: Vision grossly intact. LABORATORIES: Show a white count 4.3, H and H 10.5 and 32.3. Platelets 100,000. Chemistry shows sodium 140, potassium 4.1, chloride and bicarbonate 96 and 24 respectively. BUN and creatinine 46 and 4.57. Alk phos 213. Troponins all in the range of 1.3 without change. LABORATORY AND DIAGNOSTIC STUDIES: EKG shows atrial fibrillation with rapid ventricular response. Poor R-wave progression and nonspecific ST changes. CURRENT MEDICATIONS: Include: 1. Albuterol. 2. Midodrine. 3. Fludrocortisone. 4. Celexa. 5. Pantoprazole. 6. Atorvastatin. 7. Metoprolol succinate 25 daily. IMAGIN. Shows a chest x-ray that shows mid and lower lung scarring atelectasis with possible superimposed retrocardiac pneumonia or aspiration. 2. Moderate cardiomegaly and large sized pulmonary artery would be consistent with background pulmonary arterial hypertension. 3. Abdominal ultrasound shows trace ascites. 4. Echocardiogram was read as showing moderate concentric hypertrophy, normal left ventricular size, severely reduced systolic function and EF estimated at 15%-20%. This is global. Right ventricle mildly dilated. Pacemaker lead in the right ventricle. Systolic function is moderate to severely reduced. Estimated elevated right atrial pressure. Mild-to- moderate aortic stenosis. IMPRESSION: 1. The patient has been assessed about a year ago with coronary angiography given findings of a new cardiomyopathy relative to previous echocardiograms. He is in atrial fibrillation and they thought that perhaps this was the cause of his cardiomyopathy. He is on metoprolol at this time and I am not sure if they have had him adequately rate controlled. He also has a chronic renal insufficiency which progressed to him needing dialysis about two years ago. He is certainly not hypertensive now and I am not sure if he was hypertensive before but the degree of hypertrophy of the ventricle if no history of significant hypertension might warrant workup for issues such as amyloid or possibly even Fabry disease as these can both cause cardiac issues as well as kidney issues. Much of this workup may have already been done at [facility]. 2. He seems to be improving with treatment of his respiratory syncytial virus. We are going to put him back on his metoprolol to control his heart rate. I do not see that he ever received any diuretic and his sats were pretty good so it may be all related to the respiratory syncytial virus. 3. Regarding the elevated troponin, a stress test was ordered and this might have been helpful to evaluate if there is any evidence for ischemia in the setting of the elevated troponin. However, this was canceled today. 4. Will continue to manage him medically for now. He does not seem to be complaining of chest pain or chest pressure. I am going to try to get the remaining information about this gentleman from his chief controller center to see if it can help us make further decisions. One hour was spent reviewing the patient's records (including old records), reviewing his echo, speaking with an examining the patient. I also communicated with the hospital team REJI
--- NOTE | 2016-06-03 17:27 | PCM.PNMED ---
Subjective Date of Service Jun 03, 2016 Subjective denies any pain or discomfort. Exam Vital Signs Vital Sign - Last Date Time Temp Pulse Resp B/P Pulse Ox O2 Delivery O2 Flow Rate FiO2 06/03/16 16:08 101 20 94 Room Air 06/03/16 14:00 36.6 98/69 06/02/16 03:12 2.00 Intake and Output 06/02/16 06/02/16 06/03/16 Cumulative From/Thru 15:00 23:00 07:00 05/31/16 04:35 - 06/03/16 06:40 Intake Total 886 ml 0 ml 2546 ml Output Total 2000 ml 0 ml 4000 ml Balance -2000 ml 886 ml 0 ml -1454 ml Intake Oral 886 ml 0 ml 2546 ml TPN/PPN 0 ml Output Urine Total 0 ml 0 ml Ultrafiltrate 2000 ml 4000 ml # Bowel Movements 1 1 6 Exam General: Alert, Oriented X3, Cooperative, No Acute Distress Head: Normal Eyes: Scleral Anicteric Mouth: Mucous Membr Moist/[place] Neck: Supple Chest & Lungs: Chest Wall Normal, Coarse breath sounds (mild upper resp) Cardiovascular: Regular Rate/Rhythm Abdomen: Non-tender, Non-distended, Normoactive bowel tones, Soft Extremities: Other (1+ edema in LE bilat) Neurological: Grossly Neurologically Intact, Normal Speech IVs and Medications Medications Reviewed: Medications were reviewed in detail Lab and Diagnostics Result Diagram: 06/02/1663406/02/1635 X-Rays, CTs and MRIs Chest X ray from [place]: Showed finding consistent with CHF, central vascular and interstitial congestion. Retrocardiac opacity suggestive of atelectasis, edema and small effusion Date of Service: 05/31/16 0812 PROCEDURE: X-RAY CHEST ONE VIEW, PORTABLE ([id number]) IMPRESSION: 1. Left mid and lower lung scarring/atelectasis, with possible superimposed retrocardiac pneumonia or aspiration. 2. Moderate cardiomegaly. Enlarged main pulmonary artery would be consistent with background pulmonary arterial hypertension. 3. Changes of right shoulder rotator cuff arthropathy. Dictated by: Stewart Diaz M.D. on 05/31/2016 at 8:57 Approved by: Stewart Diaz M.D. on 05/31/2016 at 9:00 Cardiac Echo Impressions Date of Service: 06/01/16 0436 Echocardiogram Report Interpretation Summary There is moderate concentric left ventricular hypertrophy. The left ventricle is normal in size. Left ventricular systolic function is severely reduced. The ejection fraction is estimated to be 15-20%. There is severe global hypokinesis of the left ventricle. The right ventricle is mildly dilated. There is a pacemaker lead in the right ventricle. Right ventricular systolic function is moderate to severely reduced. The right ventricular systolic pressure is estimated at 42 mmHg assuming a right atrial pressure of 15 mm Hg. There is severe biatrial enlargement. There is mild to moderate mitral regurgitation. The aortic valve is moderately calcified. There is mild to moderate aortic stenosis. The peak aortic velocity is 2.12 m/sec. The calculated aortic valve area is 1.4 cm2. There is moderate tricuspid regurgitation. might be overstimated due to decrease cardiac output. Consider repeating echo in 2-3 months to reassess LVEF and . The aortic root is normal size. There is a moderate left-sided pleural effusion. Incidental finding of abdominal ascites is noted. Reading Physician:AM Assessment & Plan 76 yo man with ESRD on dialysis, Chronic A fib on Coumadin, Pulmonary embolism and Hypertension who was transfer from [facility] for dialysis due to Acute congestive heart failure # Acute systolic congestive Heart Failure. Present on admission - clinically improving with dialysis - Echo showing EF 15-20% - further fluid management per nephrology and dialysis # Acute RSV infection - c/w supportive care # Acute NSTEMI - ? if Trop elevated 2ndry to acute ischemia from respiratory status and amplified by underling ESRD - appreciate cardiology consult. will f/u w/ recs #Endstage renal disease on dialysis - appreciate nephrology consult. will f/u w/ recs - further dialysis per nephrology # ? acute aspiration pneumonia. poa - no significant leukocytosis. - procalcitonin only mildly elevated despite ESRD - suspect pulmonary symptoms likely due to RSV - stopped Abx and f/u clinically - f/u repeat CXR in am # Acute metabolic encephalopathy. Present on admission. Resolved - avoid psychoactive medications due to increased risk of Delirium # Chronic Atrial fibrillation on Coumadin - monitor on telemetry - continue Metoprolol for rate control # Supra-therapeutic INR. poa. improving - Pharmacy to manage daily Coumadin dosing Dispo: 1-2 days VTE Mechanical Devices: Intermittant Pneumatic CD Resuscitation Status: DNR/DNI:Do Not Resuscitate/Intubate (will discuss with code status) Polo Nair Jun 03, 2016 17:27
[2016-06-04] VITALS (9 sets, daily range): BP systolic 93–112; BP diastolic 60–77; PULSE 82–127; RESP 18–20; O2SAT 94–99
[2016-06-04] MEDS: Sodium Chloride LOK Flush 10 mL Syringe IVFLUSH SCH ×3 (00:45→16:30)
[2016-06-04] MEDS: Albuterol-Ipratropium 3 mL Inhalation Solution NEB SCH ×4 (02:05→19:42)
[2016-06-04 06:05] LABS: BASOPHILS % (AUTO) 0 % (0-3); EOSINOPHILS % (AUTO) 0.2 % (0-5); MONOCYTES % (AUTO) 9.1 % (4-12); Mean Corpuscular Hemoglobin 27.3 pg (27.0-35.0); Mean Corpuscular Volume 85.9 fL (81-100); NEUTROPHILS % (AUTO) 78.3 % (40-74); Platelet Count 94 bil/L (150-400)
[2016-06-04] MEDS: Pantoprazole 40 mg ER24 Tablet PO SCH (06:16)
[2016-06-04 06:17] LABS: INR 3.27 ratio
--- NOTE | 2016-06-04 07:16 | PCM.PHAPRO ---
Progress Warfarin Management by Pharmacy: Indication: Afib Home Dose: 2.5mg Mon/Wed; 5mg AOD INR Goal: 2-3 Duration: Unknown Wt: 74.7 kg -H/H 4 = 10.3/32/4, PLT = 94 Plan: doses of warfarin have been held due to supratherapeutic inr: Jun 01-Jun 02-Jun 03-May 04-Jun 4.24 4.2 4.78 4.07 3.27 -0.04 0.58 -0.71 -0.8 HOLD HOLD HOLD HOLD 3MG -pt with esrd and chf, EF or 15-20% -will resume warfarin this evening with a 3mg dose and follow Rosie Sahni [facility] Jun 04, 2016 07:16
[2016-06-04] MEDS: Calcium Carbonate (Oyster Shell) 500 mg Tablet PO SCH ×3 (08:10→20:59)
[2016-06-04] MEDS: MeTOProlol XL 25 mg ER24 Tablet PO SCH (08:11)
--- NOTE | 2016-06-04 08:44 | DRSVH ---
PROCEDURE: X-RAY CHEST ONE VIEW, PORTABLE ([id number]) INDICATIONS: 76-year-old male with cough and shortness of breath. TECHNIQUE: One view of the chest was acquired. COMPARISON: [facility], CR, XR CHEST 1VW (PORTABLE), 05/31/2016, 8:24. FINDINGS: Surgical changes and devices: Left chest wall biventricular pacer/ICD is again noted, as well as med ning sternotomy wires. Lungs and pleura: No pleural effusions or pneumothorax. There is persistent lateral left lung base opacity. Mediastinum: There is enlargement of the main pulmonary artery. Cardiomegaly is unchanged. There i s aortic atherosclerosis. Bones and chest wall: No suspicious bony lesions. There is superior right humeral head migration wi th narrowed acromiohumeral interval. Overlying soft tissues appear unremarkable. IMPRESSION: 1. Persistent left lateral lung base opacity may represent confluent scarring and/or pneumonia. 2. Main pulmonary artery enlargement as before, consistent with background pulmonary arterial hypert ension. 3. Right shoulder rotator cuff arthropathy again noted. Dictated by: Stewart Diaz M.D. on 06/04/2016 at 8:40 Approved by: Stewart Diaz M.D. on 06/04/2016 at 8:43
--- NOTE | 2016-06-04 12:56 | PCM.PNNEPH ---
Subjective Date of Service Jun 04, 2016 Subjective Patient complains of productive cough, shortness of breath and wheezing. Patient is confused at times. Exam Vital Signs Vital Sign - Last Date Time Temp Pulse Resp B/P Pulse Ox O2 Delivery O2 Flow Rate FiO2 06/04/16 12:15 Room Air 06/04/16 09:54 36.5 82 20 93/60 97 06/02/16 03:12 2.00 Intake and Output 06/03/16 06/03/16 06/04/16 Cumulative From/Thru 15:00 23:00 07:00 05/31/16 04:35 - 06/04/16 05:43 Intake Total 473 ml 50 ml 3069 ml Output Total 0 ml 0 ml 4000 ml Balance 473 ml 50 ml -931 ml Intake Oral 473 ml 50 ml 3069 ml IV Total 0 ml 0 ml TPN/PPN 0 ml Output Urine Total 0 ml 0 ml 0 ml Ultrafiltrate 4000 ml # Bowel Movements 4 1 11 Exam GENERAL: Mild tachypneic, alert and oriented x3. HEENT: Head is normocephalic and atraumatic. Extraocular muscles are intact. Dry mucous membrane. NECK: Supple, no elevation of JVD, No carotid bruits. No lymphadenopathy or thyromegaly. LUNGS: Coarse crackles bilaterally, expiratory wheezing noted. Heart: Regular rhythm, normal S1 and S2, systolic murmur noted. Abdomen: soft, nontender, and nondistended. Positive bowel sounds. No hepatosplenomegaly was noted. EXTREMITIES: Without any cyanosis, clubbing, rash, lesions or edema. Left AV fistula with good thrill and bruit. NEUROLOGIC: The patient is oriented to person, place and time. Strength and sensation are grossly intact. SKIN: No ulceration or induration present. Lab and Diagnostics Result Diagram: 06/04/1640 06/04/16 0540 X-Rays, CTs and MRIs Chest X ray from [place]: Showed finding consistent with CHF, central vascular and interstitial congestion. Retrocardiac opacity suggestive of atelectasis, edema and small effusion Date of Service: 05/31/16 0812 PROCEDURE: X-RAY CHEST ONE VIEW, PORTABLE ([id number]) IMPRESSION: 1. Left mid and lower lung scarring/atelectasis, with possible superimposed retrocardiac pneumonia or aspiration. 2. Moderate cardiomegaly. Enlarged main pulmonary artery would be consistent with background pulmonary arterial hypertension. 3. Changes of right shoulder rotator cuff arthropathy. Dictated by: Stewart Diaz M.D. on 05/31/2016 at 8:57 Approved by: Stewart Diaz M.D. on 05/31/2016 at 9:00 Cardiac Echo Impressions Date of Service: 06/01/16 0436 Echocardiogram Report Interpretation Summary There is moderate concentric left ventricular hypertrophy. The left ventricle is normal in size. Left ventricular systolic function is severely reduced. The ejection fraction is estimated to be 15-20%. There is severe global hypokinesis of the left ventricle. The right ventricle is mildly dilated. There is a pacemaker lead in the right ventricle. Right ventricular systolic function is moderate to severely reduced. The right ventricular systolic pressure is estimated at 42 mmHg assuming a right atrial pressure of 15 mm Hg. There is severe biatrial enlargement. There is mild to moderate mitral regurgitation. The aortic valve is moderately calcified. There is mild to moderate aortic stenosis. The peak aortic velocity is 2.12 m/sec. The calculated aortic valve area is 1.4 cm2. There is moderate tricuspid regurgitation. might be overstimated due to decrease cardiac output. Consider repeating echo in 2-3 months to reassess LVEF and . The aortic root is normal size. There is a moderate left-sided pleural effusion. Incidental finding of abdominal ascites is noted. Reading Physician:MAGY Plan Impression 1. End-stage kidney disease on hemodialysis every Monday and Monday 2. Shortness of breath 3. Acute RSV pneumonia 4. Acute on chronic systolic heart failure 5. Acute metabolic encephalopathy 6. Chronic atrial fibrillation 7. Chronic hypotension Plan: Patient will receive dialysis today, 4 hours, UF 1-2 L as tolerated. Check phosphorus level. The rest of management as per primary team. We will monitor along. Sara Liu MD Jun 04, 2016 12:56
--- NOTE | 2016-06-04 14:01 | PCM.PNMED ---
Subjective Date of Service Jun 04, 2016 Subjective denies any pain or discomfort. Exam Vital Signs Vital Sign - Last Date Time Temp Pulse Resp B/P Pulse Ox O2 Delivery O2 Flow Rate FiO2 06/04/16 12:15 Room Air 06/04/16 09:54 36.5 82 20 93/60 97 06/02/16 03:12 2.00 Intake and Output 06/03/16 06/03/16 06/04/16 Cumulative From/Thru 15:00 23:00 07:00 05/31/16 04:35 - 06/04/16 05:43 Intake Total 473 ml 50 ml 3069 ml Output Total 0 ml 0 ml 4000 ml Balance 473 ml 50 ml -931 ml Intake Oral 473 ml 50 ml 3069 ml IV Total 0 ml 0 ml TPN/PPN 0 ml Output Urine Total 0 ml 0 ml 0 ml Ultrafiltrate 4000 ml # Bowel Movements 4 1 11 Exam General: Alert, Oriented X3, Cooperative, No Acute Distress Head: Normal Eyes: Scleral Anicteric Mouth: Mucous Membr Moist/[place] Neck: Supple Chest & Lungs: Chest Wall Normal, Coarse breath sounds (mild upper resp) Cardiovascular: Regular Rate/Rhythm Abdomen: Non-tender, Non-distended, Normoactive bowel tones, Soft Extremities: Other (1+ edema in LE bilat) Neurological: Grossly Neurologically Intact, Normal Speech IVs and Medications Medications Reviewed: Medications were reviewed in detail Lab and Diagnostics Result Diagram: 06/04/1640 06/04/16 0540 X-Rays, CTs and MRIs Chest X ray from [place]: Showed finding consistent with CHF, central vascular and interstitial congestion. Retrocardiac opacity suggestive of atelectasis, edema and small effusion Date of Service: 05/31/16 0812 PROCEDURE: X-RAY CHEST ONE VIEW, PORTABLE ([id number]) IMPRESSION: 1. Left mid and lower lung scarring/atelectasis, with possible superimposed retrocardiac pneumonia or aspiration. 2. Moderate cardiomegaly. Enlarged main pulmonary artery would be consistent with background pulmonary arterial hypertension. 3. Changes of right shoulder rotator cuff arthropathy. Dictated by: Stewart Diaz M.D. on 05/31/2016 at 8:57 Approved by: Stewart Diaz M.D. on 05/31/2016 at 9:00 Date of Service: 06/04/16 0600 PROCEDURE: X-RAY CHEST ONE VIEW, PORTABLE ([id number]) IMPRESSION: 1. Persistent left lateral lung base opacity may represent confluent scarring and/or pneumonia. 2. Main pulmonary artery enlargement as before, consistent with background pulmonary arterial hypertension. 3. Right shoulder rotator cuff arthropathy again noted. Dictated by: Stewart Diaz M.D. on 06/04/2016 at 8:40 Approved by: Stewart Diaz M.D. on 06/04/2016 at 8:43 Cardiac Echo Impressions Date of Service: 06/01/16 0436 Echocardiogram Report Interpretation Summary There is moderate concentric left ventricular hypertrophy. The left ventricle is normal in size. Left ventricular systolic function is severely reduced. The ejection fraction is estimated to be 15-20%. There is severe global hypokinesis of the left ventricle. The right ventricle is mildly dilated. There is a pacemaker lead in the right ventricle. Right ventricular systolic function is moderate to severely reduced. The right ventricular systolic pressure is estimated at 42 mmHg assuming a right atrial pressure of 15 mm Hg. There is severe biatrial enlargement. There is mild to moderate mitral regurgitation. The aortic valve is moderately calcified. There is mild to moderate aortic stenosis. The peak aortic velocity is 2.12 m/sec. The calculated aortic valve area is 1.4 cm2. There is moderate tricuspid regurgitation. might be overstimated due to decrease cardiac output. Consider repeating echo in 2-3 months to reassess LVEF and . The aortic root is normal size. There is a moderate left-sided pleural effusion. Incidental finding of abdominal ascites is noted. Reading Physician:MAGY Assessment & Plan 76 yo man with ESRD on dialysis, Chronic A fib on Coumadin, Pulmonary embolism and Hypertension who was transfer from [facility] for dialysis due to Acute congestive heart failure # Acute systolic congestive Heart Failure. Present on admission - clinically improving with dialysis - Echo showing EF 15-20% - further fluid management per nephrology and dialysis # Acute RSV infection - c/w supportive care # Acute NSTEMI - ? if Trop elevated 2ndry to acute ischemia from respiratory status and amplified by underling ESRD - appreciate cardiology consult. will f/u w/ recs #Endstage renal disease on dialysis - appreciate nephrology consult. will f/u w/ recs - further dialysis per nephrology # ? acute aspiration pneumonia. poa - no significant leukocytosis. - procalcitonin only mildly elevated despite ESRD - suspect pulmonary symptoms likely due to RSV - stopped Abx and f/u clinically # Acute metabolic encephalopathy. Present on admission. Resolved - avoid psychoactive medications due to increased risk of Delirium # Chronic Atrial fibrillation on Coumadin - monitor on telemetry - continue Metoprolol for rate control # Supra-therapeutic INR. poa. improving - Pharmacy to manage daily Coumadin dosing Dispo: 1-2 days VTE Mechanical Devices: Intermittant Pneumatic CD Resuscitation Status: DNR/DNI:Do Not Resuscitate/Intubate (will discuss with code status) Polo Nair Jun 04, 2016 14:01
[2016-06-05] VITALS (12 sets, daily range): BP systolic 103–123; BP diastolic 66–74; PULSE 59–108; RESP 18–20; O2SAT 92–99
[2016-06-05] MEDS: Sodium Chloride LOK Flush 10 mL Syringe IVFLUSH SCH ×3 (00:30→18:08)
[2016-06-05] MEDS: Albuterol-Ipratropium 3 mL Inhalation Solution NEB SCH ×4 (02:30→22:34)
[2016-06-05] MEDS: Pantoprazole 40 mg ER24 Tablet PO SCH (06:03)
[2016-06-05 06:45] LABS: INR 2.45 ratio
--- NOTE | 2016-06-05 08:48 | PCM.PHAPRO ---
Progress Warfarin Management by Pharmacy: -Indication: afib -Home Dose: warfarin 2.5mg SuWe, 5mg all other days -Inr Goal: 2-3 -Concurrent Anticoagulation: none -Drug Interactions: citalopram (platelets) -Coagulation Trends: Jun 01-Jun 02-Jun 03-May 1-Jun 2-Jun 4.24 4.2 4.78 4.07 3.27 2.45 -0.04 0.58 -0.71 -0.8 -0.82 HOLD HOLD HOLD HOLD 3MG 3MG -Plan: will repeat dose of [id number] and follow. ordered cbc for tomorrow morning as well (platelets yesterday, 94) Rosie Sahni [facility] Jun 05, 2016 08:48
[2016-06-05] MEDS: MeTOProlol XL 25 mg ER24 Tablet PO SCH (09:03)
[2016-06-05] MEDS: Calcium Carbonate (Oyster Shell) 500 mg Tablet PO SCH ×3 (09:03→18:08)
--- NOTE | 2016-06-05 15:31 | PCM.PNMED ---
Subjective Date of Service Jun 05, 2016 Subjective denies any pain or discomfort. Exam Vital Signs Vital Sign - Last Date Time Temp Pulse Resp B/P Pulse Ox O2 Delivery O2 Flow Rate FiO2 06/05/16 15:20 100 20 92 Room Air 06/05/16 10:42 36.5 115/72 06/02/16 03:12 2.00 Intake and Output 06/04/16 06/04/16 06/05/16 Cumulative From/Thru 15:00 23:00 07:00 05/31/16 04:35 - 06/05/16 06:44 Intake Total 200 ml 0 ml 3269 ml Output Total 3000 ml 1 ml 0 ml 7001 ml Balance -3000 ml 199 ml 0 ml -3732 ml Intake Oral 200 ml 0 ml 3269 ml IV Total 0 ml TPN/PPN 0 ml Output Urine Total 0 ml Urine/Stool Mix 1 ml 0 ml 1 ml Ultrafiltrate 3000 ml 7000 ml # Bowel Movements 0 11 Exam General: seems much more lethargic and less alert than prior days. No Acute Distress Head: Normal Eyes: Scleral Anicteric Mouth: Mucous Membr Moist/[place] Neck: Supple Chest & Lungs: Chest Wall Normal, Coarse breath sounds bilat Cardiovascular: Regular Rate/Rhythm Abdomen: Non-tender, Non-distended, Normoactive bowel tones, Soft Extremities: Other (1+ edema in LE bilat) Neurological: Grossly Neurologically Intact except as noted above IVs and Medications Medications Reviewed: Medications were reviewed in detail Lab and Diagnostics Result Diagram: 06/04/16 0540 06/04/16 0540 X-Rays, CTs and MRIs Chest X ray from [place]: Showed finding consistent with CHF, central vascular and interstitial congestion. Retrocardiac opacity suggestive of atelectasis, edema and small effusion Date of Service: 05/31/16 0812 PROCEDURE: X-RAY CHEST ONE VIEW, PORTABLE ([id number]) IMPRESSION: 1. Left mid and lower lung scarring/atelectasis, with possible superimposed retrocardiac pneumonia or aspiration. 2. Moderate cardiomegaly. Enlarged main pulmonary artery would be consistent with background pulmonary arterial hypertension. 3. Changes of right shoulder rotator cuff arthropathy. Dictated by: Stewart Diaz M.D. on 05/31/2016 at 8:57 Approved by: Stewart Diaz M.D. on 05/31/2016 at 9:00 Date of Service: 06/04/16 0600 PROCEDURE: X-RAY CHEST ONE VIEW, PORTABLE ([id number]) IMPRESSION: 1. Persistent left lateral lung base opacity may represent confluent scarring and/or pneumonia. 2. Main pulmonary artery enlargement as before, consistent with background pulmonary arterial hypertension. 3. Right shoulder rotator cuff arthropathy again noted. Dictated by: Stewart Diaz M.D. on 06/04/2016 at 8:40 Approved by: Stewart Diaz M.D. on 06/04/2016 at 8:43 Cardiac Echo Impressions Date of Service: 06/01/16 0436 Echocardiogram Report Interpretation Summary There is moderate concentric left ventricular hypertrophy. The left ventricle is normal in size. Left ventricular systolic function is severely reduced. The ejection fraction is estimated to be 15-20%. There is severe global hypokinesis of the left ventricle. The right ventricle is mildly dilated. There is a pacemaker lead in the right ventricle. Right ventricular systolic function is moderate to severely reduced. The right ventricular systolic pressure is estimated at 42 mmHg assuming a right atrial pressure of 15 mm Hg. There is severe biatrial enlargement. There is mild to moderate mitral regurgitation. The aortic valve is moderately calcified. There is mild to moderate aortic stenosis. The peak aortic velocity is 2.12 m/sec. The calculated aortic valve area is 1.4 cm2. There is moderate tricuspid regurgitation. might be overstimated due to decrease cardiac output. Consider repeating echo in 2-3 months to reassess LVEF and . The aortic root is normal size. There is a moderate left-sided pleural effusion. Incidental finding of abdominal ascites is noted. Reading Physician:MAGY Assessment & Plan 76 yo man with ESRD on dialysis, Chronic A fib on Coumadin, Pulmonary embolism and Hypertension who was transfer from [facility] for dialysis due to Acute congestive heart failure # Acute systolic congestive Heart Failure. Present on admission - clinically improving with dialysis - Echo showing EF 15-20% - further fluid management per nephrology and dialysis # Acute RSV infection - c/w supportive care # Acute NSTEMI - ? if Trop elevated 2ndry to acute ischemia from respiratory status and amplified by underling ESRD - appreciate cardiology consult. will f/u w/ recs #Endstage renal disease on dialysis - appreciate nephrology consult. will f/u w/ recs - further dialysis per nephrology # ? acute aspiration pneumonia. poa - no significant leukocytosis. - procalcitonin only mildly elevated despite ESRD - suspect pulmonary symptoms likely due to RSV - stopped Abx early on this admission. f/u clinically # Acute metabolic encephalopathy. Present on admission. Resolved - seems to have possible recurrence of acute encephalopathy today (06/05). - c/w supportive care and treatments noted - avoid psychoactive medications due to increased risk of Delirium # Chronic Atrial fibrillation on Coumadin - monitor on telemetry - continue Metoprolol for rate control # Supra-therapeutic INR. poa. improving - Pharmacy to manage daily Coumadin dosing Dispo: 1-2 days pending further recs by cardiology and improved mental and respiratory status VTE Mechanical Devices: Intermittant Pneumatic CD Resuscitation Status: DNR/DNI:Do Not Resuscitate/Intubate (will discuss with code status) Time spent 35 min Polo Nair Jun 05, 2016 15:31
--- NOTE | 2016-06-05 16:58 | PROG NOTE ---
[address] [address] PROGRESS NOTE PATIENT: LOIS DOHERTY : 1940 MR#: [id number] ADMIT: 05/31/2016 JOB ID: [id number] DATE: 06/05/2016 CHIEF COMPLAINT: The patient came in with increased respiratory distress, findings now of respiratory syncytial virus and elevated troponin but no chest pain, chest pressure. At the time I saw him, he still had fairly coarse breath sounds and was denying any chest pain or chest pressure. Today, he is doing much better. He seems to be more comfortable. He again denies chest pain, chest pressure. He has intermittent cough. He denies increased shortness of breath. PHYSICAL EXAMINATION: Blood pressure is 115/72, heart rate is in the 80s to 90s. Sats are 93% on room air. General: In no acute distress, speaking in full sentences without apparent shortness of breath. Head and neck exam: Normocephalic, atraumatic. Neck: I do not appreciate obvious JV distention. Heart: Regular rate and rhythm. Lungs: Much clearer. I do not hear the coarse rhonchorous breath sounds I heard before. Abdomen is soft. Extremities: Warm. CURRENT LABS: Show white count 4.5, H and H 10.3 and 32.4, platelets of 94,000. No new chemistries today. Troponins have all been in the same range. IMPRESSION: The patient came in with respiratory distress, weakness and is found to have respiratory syncytial virus. He seemed to have a pulmonary problem more than a cardiac problem. Echo shows reduced left ventricular systolic function with significant left ventricular hypertrophy. He has elevated troponins but never had chest pain, chest pressure. Because he had the respiratory illness and given his lung issues, Lexiscan was not performed given concerns about bronchospasm contributing to his problems. He has been doing well up till now. Medications include midodrine, calcium carbonate, Celexa, metoprolol succinate, fludrocortisone, pantoprazole, atorvastatin. He is on warfarin and therefore I presume aspirin has been held because of that. The patient had no evidence obstructive coronary disease approximately a year ago. 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 He came in with findings of respiratory syncytial virus. He has no had chest pain, chest pressure. He has had elevated troponins, but these have remained flat throughout his hospital stay. PLAN: He is doing better from a respiratory standpoint. I would continue with conservative management on this gentleman at this time. 30 minutes was spent reviewing the chart, speaking with the patient and examining him. REJI
[2016-06-06] VITALS (13 sets, daily range): BP systolic 92–114; BP diastolic 60–77; PULSE 67–120; RESP 16–20; O2SAT 93–99
[2016-06-06] MEDS: Sodium Chloride LOK Flush 10 mL Syringe IVFLUSH SCH ×3 (01:12→17:15)
[2016-06-06] MEDS: Albuterol-Ipratropium 3 mL Inhalation Solution NEB SCH ×5 (04:39→23:15)
[2016-06-06 06:33] LABS: BASOPHILS % (AUTO) 0.4 % (0-3); EOSINOPHILS % (AUTO) 0.9 % (0-5); MONOCYTES % (AUTO) 8.8 % (4-12); Mean Corpuscular Hemoglobin 27.7 pg (27.0-35.0); Mean Corpuscular Volume 85.1 fL (81-100); NEUTROPHILS % (AUTO) 77.4 % (40-74); Platelet Count 119 bil/L (150-400)
[2016-06-06 06:38] LABS: INR 2.58 ratio
[2016-06-06] MEDS: Pantoprazole 40 mg ER24 Tablet PO SCH (06:46)
[2016-06-06] MEDS: MeTOProlol XL 25 mg ER24 Tablet PO SCH ×2 (08:30→10:12)
[2016-06-06] MEDS: Calcium Carbonate (Oyster Shell) 500 mg Tablet PO SCH ×3 (09:04→17:15)
--- NOTE | 2016-06-06 10:50 | PCM.PNNEPH ---
Subjective Date of Service Jun 06, 2016 Subjective (+) persistent cough. no fever/chills. Last HD on Sat. Exam Vital Signs Vital Sign - Last Date Time Temp Pulse Resp B/P Pulse Ox O2 Delivery O2 Flow Rate FiO2 06/06/16 09:26 83 20 95 Room Air 06/06/16 09:09 36.5 99/64 06/02/16 03:12 2.00 Intake and Output 06/05/16 06/05/16 06/06/16 Cumulative From/Thru 15:00 23:00 07:00 05/31/16 04:35 - 06/06/16 06:40 Intake Total 1107 ml 50 ml 4426 ml Output Total 0 ml 0 ml 7001 ml Balance 1107 ml 50 ml -2575 ml Intake Oral 1107 ml 50 ml 4426 ml IV Total 0 ml TPN/PPN 0 ml Output Urine Total 0 ml 0 ml Urine/Stool Mix 0 ml 1 ml Ultrafiltrate 7000 ml # Bowel Movements 3 0 14 Exam GENERAL: Mild tachypneic, alert and oriented x3. HEENT: Head is normocephalic and atraumatic. Extraocular muscles are intact. Dry mucous membrane. NECK: Supple, no elevation of JVD, No carotid bruits. No lymphadenopathy or thyromegaly. LUNGS: Coarse crackles bilaterally, no wheezing , no rhonchi. Heart: Regular rhythm, normal S1 and S2, systolic murmur noted. Abdomen: soft, nontender, and nondistended. Positive bowel sounds. No hepatosplenomegaly was noted. EXTREMITIES: Without any cyanosis, clubbing, rash, lesions or edema. Left AV fistula with good thrill and bruit. NEUROLOGIC: The patient is oriented to person, place and time. Lab and Diagnostics Result Diagram: 06/06/16 0550 06/06/16 0550 X-Rays, CTs and MRIs Chest X ray from [place]: Showed finding consistent with CHF, central vascular and interstitial congestion. Retrocardiac opacity suggestive of atelectasis, edema and small effusion Date of Service: 05/31/16 0812 PROCEDURE: X-RAY CHEST ONE VIEW, PORTABLE ([id number]) IMPRESSION: 1. Left mid and lower lung scarring/atelectasis, with possible superimposed retrocardiac pneumonia or aspiration. 2. Moderate cardiomegaly. Enlarged main pulmonary artery would be consistent with background pulmonary arterial hypertension. 3. Changes of right shoulder rotator cuff arthropathy. Dictated by: Stewart Diaz M.D. on 05/31/2016 at 8:57 Approved by: Stewart Diaz M.D. on 05/31/2016 at 9:00 Date of Service: 06/04/16 0600 PROCEDURE: X-RAY CHEST ONE VIEW, PORTABLE ([id number]) IMPRESSION: 1. Persistent left lateral lung base opacity may represent confluent scarring and/or pneumonia. 2. Main pulmonary artery enlargement as before, consistent with background pulmonary arterial hypertension. 3. Right shoulder rotator cuff arthropathy again noted. Dictated by: Stewart Diaz M.D. on 06/04/2016 at 8:40 Approved by: Stewart Diaz M.D. on 06/04/2016 at 8:43 Cardiac Echo Impressions Date of Service: 06/01/16 0436 Echocardiogram Report Interpretation Summary There is moderate concentric left ventricular hypertrophy. The left ventricle is normal in size. Left ventricular systolic function is severely reduced. The ejection fraction is estimated to be 15-20%. There is severe global hypokinesis of the left ventricle. The right ventricle is mildly dilated. There is a pacemaker lead in the right ventricle. Right ventricular systolic function is moderate to severely reduced. The right ventricular systolic pressure is estimated at 42 mmHg assuming a right atrial pressure of 15 mm Hg. There is severe biatrial enlargement. There is mild to moderate mitral regurgitation. The aortic valve is moderately calcified. There is mild to moderate aortic stenosis. The peak aortic velocity is 2.12 m/sec. The calculated aortic valve area is 1.4 cm2. There is moderate tricuspid regurgitation. might be overstimated due to decrease cardiac output. Consider repeating echo in 2-3 months to reassess LVEF and . The aortic root is normal size. There is a moderate left-sided pleural effusion. Incidental finding of abdominal ascites is noted. Reading Physician:AM Plan Impression 1. End-stage kidney disease on hemodialysis every Monday and Monday 2. Shortness of breath, improving 3. Acute RSV pneumonia 4. Acute on chronic systolic heart failure 5. Acute metabolic encephalopathy 6. Chronic atrial fibrillation 7. Chronic hypotension Plan: Next HD in am. The rest of management as per primary team. We will monitor along. Sara Liu MD Jun 06, 2016 10:50
--- NOTE | 2016-06-06 10:50 | PCM.PHAPRO ---
Progress Date of Service: Jun 06, 2016 Warfarin management per pharmacy Indication: atrial fibrillation INR goal: 2-3 Home warfarin dose: 2.5 mg on Mon/Mon, 5 mg on all other days of the week Date Jun 01-Jun 02-Jun 03-May 04-Jun 05-Jun 06-Jun INR 4.24 4.2 4.78 4.07 3.27 2.45 2.58 INR change -0.04 0.58 -0.71 -0.8 -0.82 0.13 Warf Dose HOLD HOLD HOLD HOLD 3MG 3MG XXX INR is therapeutic and appears stable. Give warfarin 2.5 mg PO one time at 1700. Pharmacy to continue to monitor and dose warfarin daily. Thank you, Gladis John Pharmacist Gladis John Jun 06, 2016 10:50
[2016-06-06] MEDS ORDERED: Potassium Chloride 20 mEq SR Tablet PO ONE (12:20)
--- NOTE | 2016-06-06 21:40 | PCM.PNMED ---
Subjective Date of Service Jun 06, 2016 Subjective Patient is seen and examined. He denies chest pain, dyspnea, nausea, vomiting, headaches. Patient states that he is feeling much better cough is back to his baseline. Daughter was sitting in the room with him and a medical update is given to the daughter. Later in the day his was contacted at home number and a message was left asking her to return the phone call if she needs to talk about the patient. Patient states that he has a mid gluteal cleft ulcer as well as an ulcer over his left foot. His therapy is working with the patient and they feel he is much improved today compared to Monday. They feel that his left knee samaria under local but this may be chronic. Patient has undergone Monday dialysis and expecting to have another round tomorrow a.m. Exam Vital Signs Vital Sign - Last Date Time Temp Pulse Resp B/P Pulse Ox O2 Delivery O2 Flow Rate FiO2 06/06/16 04:39 114 20 95 Room Air 06/06/16 01:50 36.5 103/61 06/02/16 03:12 2.00 Intake and Output 06/05/16 06/05/16 06/06/16 Cumulative From/Thru 15:00 23:00 07:00 05/31/16 04:35 - 06/05/16 20:32 Intake Total 1107 ml 4376 ml Output Total 0 ml 7001 ml Balance 1107 ml -2625 ml Intake Oral 1107 ml 4376 ml IV Total 0 ml TPN/PPN 0 ml Output Urine Total 0 ml 0 ml Urine/Stool Mix 1 ml Ultrafiltrate 7000 ml # Bowel Movements 3 14 Exam Gen.: No acute distress Eyes: [place] conjunctivae. No ptosis, PERRL Neck: No masses, trachea midline, no thyromegaly Lungs: CTA with normal respiratory effort CV: RRR, no murmurs/rubs/gallops, normal PMI GI: Soft, non-tender with no hepatosplenomegaly MSK: no digital cyanosis Skin: Warm and dry. Wound care dressing is present over the left achilles Psych: A&O X3, with approprate affect IVs and Medications Medications Reviewed: Medications were reviewed in detail Lab and Diagnostics Laboratory Tests Test 06/06/16 05:50 White Blood Count 5.7th/mm3 (3.8-10.1) Red Blood Count 3.82mil/mm3 (4.40-5.80) Hemoglobin 10.6g/dL (13.8-17.2) Hematocrit 32.5% (41.0-50.0) Mean Corpuscular Volume 85.1fL (81-100) Mean Corpuscular Hemoglobin 27.7pg (27.0-35.0) Mean Corpuscular Hemoglobin Concent 32.6% (32.0-37.0) Red Cell Distribution Width 18.9% (12.3-15.4) Platelet Count 119bil/L (150-400) Neutrophils (%) (Auto) 77.4% (40-74) Lymphocytes (%) (Auto) 12.3% (14-46) Monocytes (%) (Auto) 8.8% (4-12) Eosinophils (%) (Auto) 0.9% (0-5) Basophils (%) (Auto) 0.4% (0-3) Prothrombin Time 28.1sec (8.1-12.5) Prothromb Time International Ratio 2.58ratio Sodium Level 142mEq/L (134-144) Potassium Level 3.3mEq/L (3.5-5.2) Chloride Level 98mEq/L (97-108) Carbon Dioxide Level 27mmol/L (18-29) Blood Urea Nitrogen 27mg/dL (8-27) Creatinine 3.29mg/dL (0.76-1.27) Estimat Glomerular Filtration Rate 19mL/min (>59) Glucose Level 95mg/dL (60-99) Calcium Level 9.4mg/dL (8.5-10.1) Magnesium Level 1.6mg/dL (1.6-2.6) Procalcitonin 0.49ng/mL (0.00-0.08) Microbiology 05/31/16 Blood Culture - Final, Complete NO GROWTH AFTER 5 DAYS 05/31/16 Adenovirus DNA (PCR) - Final, Complete Not Detected 05/31/16 Coronavirus 229E PCR - Final, Complete Not Detected 05/31/16 Coronavirus HKU1 PCR - Final, Complete Not Detected 05/31/16 Coronavirus NL63 PCR - Final, Complete Not Detected 05/31/16 Coronavirus OC43 PCR - Final, Complete Not Detected 05/31/16 Influenza Type A (PCR) - Final, Complete Not Detected 05/31/16 Influenza Type B (PCR) - Final, Complete Not Detected 05/31/16 Human Metapneumovirus (PCR) (MARY) - Final, Complete Not Detected 05/31/16 Rhinovirus (PCR)(MARY) - Final, Complete Not Detected 05/31/16 Parainfluenza Virus Type 1 (PCR) - Final, Complete Not Detected 05/31/16 Parainfluenza Virus Type 2 (PCR) - Final, Complete Not Detected 05/31/16 Parainfluenza Virus Type 3 (PCR) - Final, Complete Not Detected 05/31/16 Parainfluenza Virus Type 4 (NAAT) - Final, Complete Not Detected 05/31/16 Respiratory Syncytial Virus (PCR)[place] - Final, Complete Respiratory Syncytial Virus 05/31/16 Chlamydia pneumoniae (PCR) - Final, Complete Not Detected 05/31/16 Mycoplasma pneumoniae DNA Detection - Final, Complete Result Diagram: 06/04/16 0540 06/04/16 0540 X-Rays, CTs and MRIs Chest X ray from [place]: Showed finding consistent with CHF, central vascular and interstitial congestion. Retrocardiac opacity suggestive of atelectasis, edema and small effusion Date of Service: 05/31/16 0812 PROCEDURE: X-RAY CHEST ONE VIEW, PORTABLE ([id number]) IMPRESSION: 1. Left mid and lower lung scarring/atelectasis, with possible superimposed retrocardiac pneumonia or aspiration. 2. Moderate cardiomegaly. Enlarged main pulmonary artery would be consistent with background pulmonary arterial hypertension. 3. Changes of right shoulder rotator cuff arthropathy. Dictated by: Stewart Diaz M.D. on 05/31/2016 at 8:57 Approved by: Stewart Diaz M.D. on 05/31/2016 at 9:00 Date of Service: 06/04/16 0600 PROCEDURE: X-RAY CHEST ONE VIEW, PORTABLE ([id number]) IMPRESSION: 1. Persistent left lateral lung base opacity may represent confluent scarring and/or pneumonia. 2. Main pulmonary artery enlargement as before, consistent with background pulmonary arterial hypertension. 3. Right shoulder rotator cuff arthropathy again noted. Dictated by: Stewart Diaz M.D. on 06/04/2016 at 8:40 Approved by: Stewart Diaz M.D. on 06/04/2016 at 8:43 Cardiac Echo Impressions Date of Service: 06/01/16 0436 Echocardiogram Report Interpretation Summary There is moderate concentric left ventricular hypertrophy. The left ventricle is normal in size. Left ventricular systolic function is severely reduced. The ejection fraction is estimated to be 15-20%. There is severe global hypokinesis of the left ventricle. The right ventricle is mildly dilated. There is a pacemaker lead in the right ventricle. Right ventricular systolic function is moderate to severely reduced. The right ventricular systolic pressure is estimated at 42 mmHg assuming a right atrial pressure of 15 mm Hg. There is severe biatrial enlargement. There is mild to moderate mitral regurgitation. The aortic valve is moderately calcified. There is mild to moderate aortic stenosis. The peak aortic velocity is 2.12 m/sec. The calculated aortic valve area is 1.4 cm2. There is moderate tricuspid regurgitation. might be overstimated due to decrease cardiac output. Consider repeating echo in 2-3 months to reassess LVEF and . The aortic root is normal size. There is a moderate left-sided pleural effusion. Incidental finding of abdominal ascites is noted. Reading Physician:AM Assessment & Plan 76 yo man with ESRD on dialysis, Chronic A fib on Coumadin, Pulmonary embolism and Hypertension who was transfer from [facility] for dialysis due to Acute congestive heart failure and needing dialysis. He underwent dialysis on 06/04.Cardiology recommends conservative therapy for his elevated troponins/ NSTEMI. He has received appropriate dialysis with his acute exacerbation of congestive heart failure in the context. Patient has much improved and his is wanting for him to go to a skilled care for rehabilitation # Acute systolic congestive Heart Failure. Present on admission - clinically improving with dialysis - Echo showing EF 15-20% - further fluid management per nephrology and dialysis # Acute RSV infection - c/w supportive care # Acute NSTEMI - ? if Trop elevated 2ndry to acute ischemia from respiratory status and amplified by underling ESRD - appreciate cardiology consult. will f/u w/ recs: Cardiology recommends conservative therapy for his elevated troponins/ NSTEMI. #Endstage renal disease on dialysis - appreciate nephrology consult. will f/u w/ recsad on round of dialysis on - further dialysis per nephrology # ? acute aspiration pneumonia. poa - no significant leukocytosis. - procalcitonin only mildly elevated despite ESRD - suspect pulmonary symptoms likely due to RSV - stopped Abx early on this admission. f/u clinically -- Fevers resolved, recheck pro-calcitonin tomorrow # Acute metabolic encephalopathy. Present on admission. Resolved - c/w supportive care and treatments noted - avoid psychoactive medications due to increased risk of Delirium # Chronic Atrial fibrillation on Coumadin - monitor on telemetry - continue Metoprolol for rate control # Supra-therapeutic INR. poa. improving - Pharmacy to manage daily Coumadin dosing Dispo: Discharge likely tomorrow Pain Evaluation: Adequate Pain Control VTE Mechanical Devices: Intermittant Pneumatic CD Resuscitation Status: DNR/DNI:Do Not Resuscitate/Intubate (will discuss with code status) Heather Arguelles DO Jun 06, 2016 05:46
[2016-06-07] VITALS (12 sets, daily range): BP systolic 93–117; BP diastolic 63–74; PULSE 68–120; RESP 18–22; O2SAT 86–99
[2016-06-07 01:26] LABS: Magnesium 1.5 mg/dL (1.6-2.6)
[2016-06-07 01:27] LABS: TROPONIN T 1.05 ug/L (0.0-0.011)
[2016-06-07] MEDS: Sodium Chloride LOK Flush 10 mL Syringe IVFLUSH SCH ×4 (01:42→21:47)
[2016-06-07] MEDS: Pantoprazole 40 mg ER24 Tablet PO SCH (06:01)
[2016-06-07 06:46] LABS: BASOPHILS % (AUTO) 0.2 % (0-3); EOSINOPHILS % (AUTO) 0.5 % (0-5); MONOCYTES % (AUTO) 8.9 % (4-12); Mean Corpuscular Hemoglobin 27.7 pg (27.0-35.0); Mean Corpuscular Volume 85.2 fL (81-100); NEUTROPHILS % (AUTO) 77.9 % (40-74); Platelet Count 119 bil/L (150-400)
[2016-06-07 06:59] LABS: INR 2.91 ratio
[2016-06-07] MEDS: Albuterol-Ipratropium 3 mL Inhalation Solution NEB SCH ×2 (08:03→20:43)
[2016-06-07] MEDS: MeTOProlol XL 25 mg ER24 Tablet PO SCH (08:57)
[2016-06-07] MEDS: Calcium Carbonate (Oyster Shell) 500 mg Tablet PO SCH ×3 (08:57→18:42)
[2016-06-07] MEDS ORDERED: Albuterol 2.5 mg/3 mL Inhalation Solution NEB PRN (10:05)
[2016-06-07] MEDS ORDERED: Magnesium Sulf 2 Gm/50mL Water 2 GM in IV Premix 1 EACH IV ONE (10:25)
--- NOTE | 2016-06-07 10:34 | PCM.PNNEPH ---
Subjective Date of Service Jun 07, 2016 Subjective V-tach reported last night. Mg 1.5, trop 1.05. Procalcitonin is trending down. Persistently cough with phlegm. No fever, chills. Exam Vital Signs Vital Sign - Last Date Time Temp Pulse Resp B/P Pulse Ox O2 Delivery O2 Flow Rate FiO2 06/07/16 09:06 36.7 117 18 101/64 97 Room Air 06/02/16 03:12 2.00 Intake and Output 06/06/16 06/06/16 06/07/16 Cumulative From/Thru 15:00 23:00 07:00 05/31/16 04:35 - 06/07/16 06:05 Intake Total 800 ml 5226 ml Output Total 0 ml 7001 ml Balance 800 ml -1775 ml Intake Oral 800 ml 5226 ml IV Total 0 ml TPN/PPN 0 ml Output Urine Total 0 ml Urine/Stool Mix 0 ml 1 ml Ultrafiltrate 7000 ml # Bowel Movements 1 15 Exam GENERAL: Alert and oriented x3. Lying in bed comfortably. HEENT: Head is normocephalic and atraumatic. Extraocular muscles are intact. Dry mucous membrane. NECK: Supple, no elevation of JVD, No carotid bruits. No lymphadenopathy or thyromegaly. LUNGS: Coarse crackles bilaterally, (+) expiratory wheezing and rhonchi. Heart: Regular rhythm, normal S1 and S2, systolic murmur noted. Abdomen: soft, nontender, and nondistended. Positive bowel sounds. No hepatosplenomegaly was noted. EXTREMITIES: Without any cyanosis, clubbing, rash, lesions or edema. Left AV fistula with good thrill and bruit. NEUROLOGIC: The patient is oriented to person, place and time. Lab and Diagnostics Result Diagram: 06/07/1655406/07/16554 X-Rays, CTs and MRIs Chest X ray from [place]: Showed finding consistent with CHF, central vascular and interstitial congestion. Retrocardiac opacity suggestive of atelectasis, edema and small effusion Date of Service: 05/31/16 0812 PROCEDURE: X-RAY CHEST ONE VIEW, PORTABLE ([id number]) IMPRESSION: 1. Left mid and lower lung scarring/atelectasis, with possible superimposed retrocardiac pneumonia or aspiration. 2. Moderate cardiomegaly. Enlarged main pulmonary artery would be consistent with background pulmonary arterial hypertension. 3. Changes of right shoulder rotator cuff arthropathy. Dictated by: Stewart Diaz M.D. on 05/31/2016 at 8:57 Approved by: Stewart Diaz M.D. on 05/31/2016 at 9:00 Date of Service: 06/04/16 0600 PROCEDURE: X-RAY CHEST ONE VIEW, PORTABLE ([id number]) IMPRESSION: 1. Persistent left lateral lung base opacity may represent confluent scarring and/or pneumonia. 2. Main pulmonary artery enlargement as before, consistent with background pulmonary arterial hypertension. 3. Right shoulder rotator cuff arthropathy again noted. Dictated by: Stewart Diaz M.D. on 06/04/2016 at 8:40 Approved by: Stewart Diaz M.D. on 06/04/2016 at 8:43 Cardiac Echo Impressions Date of Service: 06/01/16 0436 Echocardiogram Report Interpretation Summary There is moderate concentric left ventricular hypertrophy. The left ventricle is normal in size. Left ventricular systolic function is severely reduced. The ejection fraction is estimated to be 15-20%. There is severe global hypokinesis of the left ventricle. The right ventricle is mildly dilated. There is a pacemaker lead in the right ventricle. Right ventricular systolic function is moderate to severely reduced. The right ventricular systolic pressure is estimated at 42 mmHg assuming a right atrial pressure of 15 mm Hg. There is severe biatrial enlargement. There is mild to moderate mitral regurgitation. The aortic valve is moderately calcified. There is mild to moderate aortic stenosis. The peak aortic velocity is 2.12 m/sec. The calculated aortic valve area is 1.4 cm2. There is moderate tricuspid regurgitation. might be overstimated due to decrease cardiac output. Consider repeating echo in 2-3 months to reassess LVEF and . The aortic root is normal size. There is a moderate left-sided pleural effusion. Incidental finding of abdominal ascites is noted. Reading Physician:AM Plan Impression 1. End-stage kidney disease on hemodialysis every Monday and Monday. 2. Vtach, hypomagnesemia noted. 3. Acute RSV pneumonia 4. Acute on chronic systolic heart failure 5. Acute metabolic encephalopathy 6. Chronic atrial fibrillation 7. Chronic hypotension Plan: Replace Mg, will give MgSO4 and Mg oxide. HD today with UF 2 L. Repeat CXR. Sara Liu MD Jun 07, 2016 10:34
--- NOTE | 2016-06-07 10:53 | PCM.PHAPRO ---
Progress Date of Service: Jun 07, 2016 Warfarin management per pharmacy Indication: atrial fibrillation INR goal: 2-3 Home warfarin dose: 2.5 mg on Mon/Mon, 5 mg on all other days of the week DATE Jun 02-Jun 03-May 04-Jun 05-Jun 06-Jun 07-Jun INR 4.2 4.78 4.07 3.27 2.45 2.58 2.91 INR CHANGE -0.04 0.58 -0.71 -0.8 -0.82 0.13 0.33 DOSE HOLD HOLD HOLD 3MG 3MG 2.5 MG XXX INR is therapeutic and trending up. Will slightly reduce dose. Give warfarin 2 mg PO one time at 1700. Pharmacy to continue to monitor and dose warfarin daily. Thank you, Gladis John Pharmacist Gladis John Jun 07, 2016 10:53
--- NOTE | 2016-06-07 11:00 | DRSVH ---
PROCEDURE: X-RAY CHEST, TWO VIEWS ([id number]) INDICATIONS: wheezing TECHNIQUE: 2 views of the chest were acquired. COMPARISON: [facility], CR, XR CHEST 1VW (PORTABLE), 06/04/2016, 8:09. FINDINGS: Surgical changes and devices: There is a cardiac defibrillator with leads in expected position. [place] otomy Lungs and pleura: Bilateral interstitial infiltrates suspicious for pulmonary edema. More confluent left basilar opacity may be superimposed pneumonia. There are small left pleural effusions. No pneumo thorax. Mediastinum: Mediastinal contours are normal. Heart size is normal. Bones and chest wall: No suspicious bony abnormalities. Soft tissues appear unremarkable. IMPRESSION: 1. Congestive heart failure. 2. Possible superimposed left basilar pneumonia. Recommend clinical correlation. Dictated by: Billie Murillo M.D. on 06/07/2016 at 10:56 Approved by: Billie Murillo M.D. on 06/07/2016 at 10:59
[2016-06-07] MEDS ORDERED: 0.9% Sodium Chloride 250 ML ONE ×2 (12:11→21:41)
--- NOTE | 2016-06-07 21:13 | PCM.PNMED ---
Subjective Date of Service Jun 07, 2016 Subjective Patient is seen and examined. Patient states he does not urinate due to his kidney failure. He had an iron of 44 beats of V. tach overnight. Troponin> 1.05. which is close to what patient had earlier during this admission. He says he had a large bowel movement around that time. He denies having any chest pain or palpitations but recalls getting lab work done at that time magnesium was low at 1.5, was repleted this an a.m. stasis coughing more. Denies fevers. Spoke to his today for the phone during which conversation she mentions that patient has had several hospital admissions for pneumonia last one being in [facility] in April and he was treated with antibiotics. She also says patient has severe allergy to ertapenem it was done last year and he felt very agitated and disoriented. He used to be getting peritoneal dialysis at home in the past. Exam Vital Signs Vital Sign - Last Date Time Temp Pulse Resp B/P Pulse Ox O2 Delivery O2 Flow Rate FiO2 06/07/16 20:50 36.5 111 20 117/69 99 neb treatment 8.00 Intake and Output 06/06/16 06/06/16 06/07/16 Cumulative From/Thru 15:00 23:00 07:00 05/31/16 04:35 - 06/07/16 06:05 Intake Total 800 ml 5226 ml Output Total 0 ml 7001 ml Balance 800 ml -1775 ml Intake Oral 800 ml 5226 ml IV Total 0 ml TPN/PPN 0 ml Output Urine Total 0 ml Urine/Stool Mix 0 ml 1 ml Ultrafiltrate 7000 ml # Bowel Movements 1 15 Exam Gen.: Mildly dyspneic coughing HEENT: Normocephalic Neck: Positive for JVD specially on the left side Heart: No murmurs, irregular Lungs: Diffuse wheezing and rales Abdomen nondistended Neuro no focal deficits Psychiatric negative for anxiety IVs and Medications IV Fluids None Medications Reviewed: Medications were reviewed in detail Lab and Diagnostics Result Diagram: 06/07/1655406/07/16554 X-Rays, CTs and MRIs Chest X ray from [place]: Showed finding consistent with CHF, central vascular and interstitial congestion. Retrocardiac opacity suggestive of atelectasis, edema and small effusion Date of Service: 05/31/16 0812 PROCEDURE: X-RAY CHEST ONE VIEW, PORTABLE ([id number]) IMPRESSION: 1. Left mid and lower lung scarring/atelectasis, with possible superimposed retrocardiac pneumonia or aspiration. 2. Moderate cardiomegaly. Enlarged main pulmonary artery would be consistent with background pulmonary arterial hypertension. 3. Changes of right shoulder rotator cuff arthropathy. Dictated by: Stewart Diaz M.D. on 05/31/2016 at 8:57 Approved by: Stewart Diaz M.D. on 05/31/2016 at 9:00 Date of Service: 06/04/16 0600 PROCEDURE: X-RAY CHEST ONE VIEW, PORTABLE ([id number]) IMPRESSION: 1. Persistent left lateral lung base opacity may represent confluent scarring and/or pneumonia. 2. Main pulmonary artery enlargement as before, consistent with background pulmonary arterial hypertension. 3. Right shoulder rotator cuff arthropathy again noted. Dictated by: Stewart Diaz M.D. on 06/04/2016 at 8:40 Approved by: Stewart Diaz M.D. on 06/04/2016 at 8:43 [facility] Diagnostic Imaging Department [place], [place] [id number] Patient Name: LOIS DOHERTY MR#: [id number] Location: [facility] Ordering Phys: Heather Arguelles DO Date of Service: 06/07/16 0957 PROCEDURE: X-RAY CHEST, TWO VIEWS ([id number]) INDICATIONS: wheezing TECHNIQUE: 2 views of the chest were acquired. COMPARISON: [facility], CR, XR CHEST 1VW (PORTABLE), 06/04/2016, 8: 09. FINDINGS: Surgical changes and devices: There is a cardiac defibrillator with leads in expected position. Sternotomy Lungs and pleura: Bilateral interstitial infiltrates suspicious for pulmonary edema. More confluent left basilar opacity may be superimposed pneumonia. There are small left pleural effusions. No pneumothorax. Mediastinum: Mediastinal contours are normal. Heart size is normal. Bones and chest wall: No suspicious bony abnormalities. Soft tissues appear unremarkable. IMPRESSION: 1. Congestive heart failure. 2. Possible superimposed left basilar pneumonia. Recommend clinical correlation. Dictated by: Billie Murillo M.D. on 06/07/2016 at 10:56 Approved by: Billie Murillo M.D. on 06/07/2016 at 10:59 Cardiac Echo Impressions Date of Service: 06/01/16 0436 Echocardiogram Report Interpretation Summary There is moderate concentric left ventricular hypertrophy. The left ventricle is normal in size. Left ventricular systolic function is severely reduced. The ejection fraction is estimated to be 15-20%. There is severe global hypokinesis of the left ventricle. The right ventricle is mildly dilated. There is a pacemaker lead in the right ventricle. Right ventricular systolic function is moderate to severely reduced. The right ventricular systolic pressure is estimated at 42 mmHg assuming a right atrial pressure of 15 mm Hg. There is severe biatrial enlargement. There is mild to moderate mitral regurgitation. The aortic valve is moderately calcified. There is mild to moderate aortic stenosis. The peak aortic velocity is 2.12 m/sec. The calculated aortic valve area is 1.4 cm2. There is moderate tricuspid regurgitation. might be overstimated due to decrease cardiac output. Consider repeating echo in 2-3 months to reassess LVEF and . The aortic root is normal size. There is a moderate left-sided pleural effusion. Incidental finding of abdominal ascites is noted. Reading Physician:AM Assessment & Plan 76 yo man with ESRD on dialysis, Chronic A fib on Coumadin, Pulmonary embolism and Hypertension who was transfer from [place] [facility] for dialysis due to Acute congestive heart failure and needing dialysis. He underwent dialysis on 06/04.Cardiology recommends conservative therapy for his elevated troponins/ NSTEMI. He has received appropriate dialysis with his acute exacerbation of congestive heart failure in the context. Patient has much improved and his is wanting for him to go to a skilled care for rehabilitation. Today he appears more dyspneic bit more fluid overloaded. # Acute systolic congestive Heart Failure. Present on admission - clinically improving with dialysis - Echo showing EF 15-20% - further fluid management per nephrology and dialysis # Acute RSV infection - c/w supportive care # Acute NSTEMI - ? if Trop elevated 2ndry to acute ischemia from respiratory status and amplified by underling ESRD : Troponin last night showed similar value 1.05 - appreciate cardiology consult. will f/u w/ recs: Cardiology recommends conservative therapy for his elevated troponins/ NSTEMI. # Tachycardia from 06/06/16 overnight -- 2 g of IV magnesium is administered -- We will follow up with daily labs #Endstage renal disease on dialysis - appreciate nephrology consult. will f/u w/ another round of dialysis on - further dialysis per nephrology -- Discussed arranging for IV antibiotics following dialysis upon discharge # ? acute aspiration pneumonia. poa - no significant leukocytosis. - procalcitonin only mildly elevated despite ESRD - suspect pulmonary symptoms likely due to RSV - stopped Abx early on this admission. f/u clinically -- Fevers resolved, recheck pro-calcitonin is still elevated. -- Patient is apparently allergy to many many antibiotics. We will start him on Zosyn renally dosed, will consult ID tomorrow # Acute metabolic encephalopathy. Present on admission. Resolved - c/w supportive care and treatments noted - avoid psychoactive medications due to increased risk of Delirium # Chronic Atrial fibrillation on Coumadin - monitor on telemetry - continue Metoprolol for rate control # Supra-therapeutic INR. poa. improving - Pharmacy to manage daily Coumadin dosing Dispo: Discharge likely tomorrow VTE Mechanical Devices: Intermittant Pneumatic CD Resuscitation Status: DNR/DNI:Do Not Resuscitate/Intubate (will discuss with code status) Heather Arguelles DO Jun 07, 2016 21:12
[2016-06-07] MEDS: Piperacillin-Tazo 3.375 Gm Inj 3.375 GM in Dextrose 5% Minibag Plus 50 ML IV SCH (21:46)
[2016-06-08 00:32] VITALS: BP 105/64; PULSE 77; RESP 18; O2SAT 96
[2016-06-08] MEDS: Albuterol-Ipratropium 3 mL Inhalation Solution NEB SCH ×2 (02:23→10:30)
[2016-06-08 04:59] VITALS: BP 104/53; PULSE 95; RESP 18; O2SAT 95
[2016-06-08] MEDS: Pantoprazole 40 mg ER24 Tablet PO SCH (06:39)
[2016-06-08 06:59] LABS: INR 3.06 ratio
[2016-06-08 07:23] LABS: BASOPHILS % (AUTO) 0.3 % (0-3); EOSINOPHILS % (AUTO) 0.5 % (0-5); MONOCYTES % (AUTO) 7.5 % (4-12); Mean Corpuscular Hemoglobin 27.2 pg (27.0-35.0); Mean Corpuscular Volume 86.8 fL (81-100); NEUTROPHILS % (AUTO) 79.5 % (40-74); Platelet Count 134 bil/L (150-400)
[2016-06-08 09:24] VITALS: PULSE 99
[2016-06-08] MEDS: Calcium Carbonate (Oyster Shell) 500 mg Tablet PO SCH (09:30)
[2016-06-08] MEDS: Sodium Chloride LOK Flush 10 mL Syringe IVFLUSH SCH (09:30)
[2016-06-08] MEDS: Piperacillin-Tazo 3.375 Gm Inj 3.375 GM in Dextrose 5% Minibag Plus 50 ML IV SCH (09:31)
[2016-06-08] MEDS: MeTOProlol XL 25 mg ER24 Tablet PO SCH (09:44)
--- NOTE | 2016-06-08 10:09 | PCM.PHAPRO ---
Progress Date of Service: Jun 08, 2016 Warfarin management per pharmacy Indication: atrial fibrillation INR goal: 2-3 Home warfarin dose: 2.5 mg on Mon/Mon, 5 mg on all other days of the week Jun 03-May 04-Jun 05-Jun 06-Jun 07-Jun 08-Jun 4.78 4.07 3.27 2.45 2.58 2.91 3.06 0.58 -0.71 -0.8 -0.82 0.13 0.33 0.15 HOLD HOLD 3MG 3MG 2.5 MG 2 MG xxxx INR is barely supratherapeutic but stabilizing -- likely needs around 2 mg daily. Will slightly reduce dose today for INR to come down Give warfarin 1.5 mg PO one time at 1700. Pharmacy to continue to monitor and dose warfarin daily. Thank you, Gladis John Pharmacist Gladis John Jun 08, 2016 10:09
[2016-06-08 10:30] VITALS: PULSE 108; RESP 20; O2SAT 94
[2016-06-08 10:53] VITALS: BP 101/61; PULSE 112; RESP 18; O2SAT 96
--- NOTE | 2016-06-08 11:47 | PCM.DIMED ---
Discharge Instructions Date of Service Jun 08, 2016 Dates of Hospitalization May 31, 2016 at 04:12 Discharge Diagnosis Discharge Diagnosis ESRD on Dialysis, chronic afib on coumadin, Pulm Embolism, Systolic Heart failure, HTN, Dyslypidemia Diet Other (pureed diet, honey thickened liquids) Activity Other (Front wheeled walker) Call your provider Fever or Chills, Shortness of breath, Bleeding, Chest pain, Vomitting, Excessive diarrhea, Weakness (unilateral), Other Patient Instructions Follow-up plan Patient will be seen by the attending at the [facility] upon admission Follow up with Dr. Barragan/Dr. Ang for dialysis at their dialysis center Thur and Sat Please repeat INR ran in 3 days after the discharge Heather Arguelles DO Jun 08, 2016 11:46
[2016-06-08] MEDS ORDERED: ALBU2.5V4 NEB (11:54)
[2016-06-08] MEDS ORDERED: WARF1TAB PO ×2 (11:54→11:56)
[2016-06-08] MEDS ORDERED: DIPH1TAB PO (11:54)
--- NOTE | 2016-06-08 15:01 | CONS ---
[address] [address] CONSULTATION REPORT PATIENT: LOIS DOHERTY : 1940 MR#: [id number] ADMIT: 05/31/2016 JOB ID: [id number] DATE OF SERVICE: 06/08/2016 INFECTIOUS DISEASE CONSULTATION: I thank Dr. Arguelles for this timely consult. REASON FOR CONSULTATION: Persistent cough, shortness of breath and possible bacterial pneumonia. 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 He currently lives at home with his in [place] but is severely limited in that he can only walk a few feet due to weakness. The patient usually follows with physicians in [place] and [place], but on this occasion, he presented to the [facility] with increasing shortness of breath, some confusion and a persistent relatively dry cough. He was sent here because [facility] does not offer dialysis and he has is a chronic hemodialysis patient. After his arrival here approximately one week ago, he was thought to have possible pneumonia and was started on Zosyn. This was subsequently stopped after a few days and then restarted yesterday out of concern that he may have aspiration and another bacterial process ongoing. As part of his workup for pneumonia, he had a respiratory viral PCR panel earlier in his hospital stay which was positive for RSV and he has been placed in the appropriate isolation for that. The patient denies sick contacts and lives at home with his who has not apparently had a respiratory tract illness. The patient tells us he has been without fever or chills throughout this entire illness. He also denies any significant sore throat. He denies any aspiration type symptoms and states his cough varies wildly in terms of productivity from being nonproductive to thick and productive to bloody at times. It is interesting to note that there is no record here of his having hemoptysis. In any event, he thinks his shortness of breath got better initially after admission, and now may be getting a bit worse but he is a very poor historian and confesses he has a great deal of trouble keeping track of dates, times and places. He has had no significant GI symptoms and does not produce urine as he is a dialysis patient. PAST MEDICAL HISTORY: 1. End-stage renal disease requiring hemodialysis. 2. Organic heart disease: a. Paroxysmal atrial fibrillation. b. Status post AICD. c. Ejection fraction known to be only 15% or so. 3. History of pulmonary embolism. 4. Hypertension. SOCIAL HISTORY: The patient quit smoking almost 40 years ago. He does not drink alcohol. Lives with his in [place] and is very debilitated and he can only walk from his bed to the bathroom. The patient's last foreign travel was a brief trip to [facility] a couple years ago. FAMILY HISTORY: Negative for tuberculosis to the degree the patient can recall but his memory is quite faulty and he readily admits that. REVIEW OF SYSTEMS: Was limited because the patient is really not a very good historian but he denies significant headache. No sinus complaint. No sores in the mouth. No sore throat. No aspiration type symptoms. He has a cough as mentioned with shortness of breath. He is chronically weak to the point he can only walk 10 feet. No nausea, vomiting or diarrhea. He does not make urine, therefore, has no dysuria. No particular swelling of the joints is reported and no new neurologic focal weakness. Remainder of the review of systems negative. PHYSICAL EXAMINATION: Reveals a gentleman who has been afebrile the last five of his seven days in the hospital. First day he spiked to 38.4. Early on the third day, he spiked to 38.1, and he has been afebrile since now 36.3. Pulse 108, respiratory rate 20, blood pressure 104/53, saturating fine on room air. The patient appears very weak and debilitated. He has a BMI of 21. He is oriented x3 but admits that he is very shaky with dates and places. He does not have temporal wasting. Does not have conjunctivitis, scleral icterus. Nose and ears appear normal. Oral cavity: No thrush or hairy leukoplakia seen. Neck without notable adenopathy or significant JVD today. Lungs with coarse breath sounds bilaterally, worse at the bases, may be worse on the right but quite a lot of extra lungs sounds are heard, primarily rhonchi and some rales. Cardiac tones: Irregular rate and rhythm. No significant murmur appreciated. The abdomen is soft and nontender without appreciable organomegaly. He does not have a Mondragon catheter obviously. No suprapubic fullness. His extremities are wasted and consistent with his history of limited ambulation and progressive weakness. There is no significant edema though. No synovitis. No cellulitis. He does have peripheral pulses with good perfusion of the extremities. No focal neuro deficits are noted. Labs include white count 6300. Note that his white count has been normal since admission. He consistently has about 75%-80% segs, otherwise normal differential. Creatinine is elevated, of course, 2.6. He is a dialysis patient. Potassium reasonable 4.1. Procalcitonins x3 have all been about 0.5, which is normal for a dialysis patient. LFTs normal except for a slightly elevated alk phos 213. Micro studies include respiratory viral PCR panel positive for RSV on the day of admission, May 31. Blood cultures are negative. We reviewed the patient's chest x-rays. Note that we have no films dating back further than a week ago because he has been followed exclusively in [facility]. His chest x-ray now shows what appears to be congestive heart failure. It also appears like there may be some scarring of the lungs or fibrosis though it is not completely clear nor is it noted much by the radiologist. There is also a bit more infiltrate at the left base which is seen on all the films done during this admission and may represent atelectasis or unilateral pulmonary edema or possibly even pneumonia. IMPRESSION: This patient has underlying severe cardiac and renal disease. I think most of his shortness of breath and cough is related to congestive heart failure and his recent exacerbation and fever is likely due to RSV. Whether or not he may aspirate is unclear but at this point he certainly does not have a raging aspiration pneumonia. I would also be curious to know whether he ever took amiodarone in the past. RECOMMENDATIONS: 1. I would discontinue all antibacterial agents at this point. 2. Speech therapy should evaluate the patient for swallowing difficulties to see if recurrent aspiration could be part of his problems. 3. He should remain in isolation because of his RSV. 4. We will continue to closely monitor this patient with you. Depending on how he does, it may be indicated to get a pulmonary evaluation but lets see how he does with his swallow study.
--- NOTE | 2016-06-13 11:02 | PCM.DC.MED ---
Discharge Summary Date of Service Jun 08, 2016 Dates of Hospitalization Date of Hospital Admission May 31, 2016 at 04:12 Date of Discharge: Jun 08, 2016 Providers: Admitting Physician: Liam Tim MD Primary Care Physician: German Adler Attending Physician: Liam Tim MD Diagnosis at Time of Discharge Diagnosis at Time of Discharge ESRD on Dialysis, chronic afib on coumadin, Pulm Embolism, Systolic Heart failure, HTN, Dyslypidemia Consultations Infectious Disease, Cariology, Nephrology, PT/OT Procedures XRay, CTs & MRIs Chest X ray from [place]: Showed finding consistent with CHF, central vascular and interstitial congestion. Retrocardiac opacity suggestive of atelectasis, edema and small effusion Date of Service: 05/31/16 0812 PROCEDURE: X-RAY CHEST ONE VIEW, PORTABLE ([id number]) IMPRESSION: 1. Left mid and lower lung scarring/atelectasis, with possible superimposed retrocardiac pneumonia or aspiration. 2. Moderate cardiomegaly. Enlarged main pulmonary artery would be consistent with background pulmonary arterial hypertension. 3. Changes of right shoulder rotator cuff arthropathy. Dictated by: Stewart Diaz M.D. on 05/31/2016 at 8:57 Approved by: Stewart Diaz M.D. on 05/31/2016 at 9:00 Date of Service: 06/04/16 0600 PROCEDURE: X-RAY CHEST ONE VIEW, PORTABLE ([id number]) IMPRESSION: 1. Persistent left lateral lung base opacity may represent confluent scarring and/or pneumonia. 2. Main pulmonary artery enlargement as before, consistent with background pulmonary arterial hypertension. 3. Right shoulder rotator cuff arthropathy again noted. Dictated by: Stewart Diaz M.D. on 06/04/2016 at 8:40 Approved by: Stewart Diaz M.D. on 06/04/2016 at 8:43 [facility] Diagnostic Imaging Department [place], [place] [id number] Patient Name: LOIS DOHERTY MR#: [id number] [place] [facility] [place] Phys: Heather Choudhury DO Date of Service: 06/07/16 0957 PROCEDURE: X-RAY CHEST, TWO VIEWS ([id number]) INDICATIONS: wheezing TECHNIQUE: 2 views of the chest were acquired. COMPARISON: [facility], CR, XR CHEST 1VW (PORTABLE), 06/04/2016, 8: 09. FINDINGS: Surgical changes and devices: There is a cardiac defibrillator with leads in expected position. Sternotomy Lungs and pleura: Bilateral interstitial infiltrates suspicious for pulmonary edema. More confluent left basilar opacity may be superimposed pneumonia. There are small left pleural effusions. No pneumothorax. Mediastinum: Mediastinal contours are normal. Heart size is normal. Bones and chest wall: No suspicious bony abnormalities. Soft tissues appear unremarkable. IMPRESSION: 1. Congestive heart failure. 2. Possible superimposed left basilar pneumonia. Recommend clinical correlation. Dictated by: Billie Murillo M.D. on 06/07/2016 at 10:56 Approved by: Billie Murillo M.D. on 06/07/2016 at 10:59 [facility] Diagnostic Imaging Department [place], [place] [id number] Patient Name: LOIS DOHERTY MR#: [id number] Location: [facility] [place] Ordering Phys: Polo Nair MD Date of Service: 06/04/16 0600 PROCEDURE: X-RAY CHEST ONE VIEW, PORTABLE ([id number]) INDICATIONS: 76-year-old male with cough and shortness of breath. TECHNIQUE: One view of the chest was acquired. COMPARISON: [facility], CR, XR CHEST 1VW (PORTABLE), 05/31/2016, 8: 24. FINDINGS: Surgical changes and devices: Left chest wall biventricular pacer/ICD is again noted, as well as median sternotomy wires. Lungs and pleura: No pleural effusions or pneumothorax. There is persistent lateral left lung base opacity. Mediastinum: There is enlargement of the main pulmonary artery. Cardiomegaly is unchanged. There is aortic atherosclerosis. Bones and chest wall: No suspicious bony lesions. There is superior right humeral head migration with narrowed acromiohumeral interval. Overlying soft tissues appear unremarkable. IMPRESSION: 1. Persistent left lateral lung base opacity may represent confluent scarring and/or pneumonia. 2. Main pulmonary artery enlargement as before, consistent with background pulmonary arterial hypertension. 3. Right shoulder rotator cuff arthropathy again noted. Dictated by: Stewart Diaz M.D. on 06/04/2016 at 8:40 Approved by: Stewart Diaz M.D. on 06/04/2016 at 8:43 Cardiac Echo Impression Date of Service: 06/01/16 0436 Echocardiogram Report Interpretation Summary There is moderate concentric left ventricular hypertrophy. The left ventricle is normal in size. Left ventricular systolic function is severely reduced. The ejection fraction is estimated to be 15-20%. There is severe global hypokinesis of the left ventricle. The right ventricle is mildly dilated. There is a pacemaker lead in the right ventricle. Right ventricular systolic function is moderate to severely reduced. The right ventricular systolic pressure is estimated at 42 mmHg assuming a right atrial pressure of 15 mm Hg. There is severe biatrial enlargement. There is mild to moderate mitral regurgitation. The aortic valve is moderately calcified. There is mild to moderate aortic stenosis. The peak aortic velocity is 2.12 m/sec. The calculated aortic valve area is 1.4 cm2. There is moderate tricuspid regurgitation. might be overstimated due to decrease cardiac output. Consider repeating echo in 2-3 months to reassess LVEF and . The aortic root is normal size. There is a moderate left-sided pleural effusion. Incidental finding of abdominal ascites is noted. Reading Physician:AM Brief History 76 yo man with ESRD on dialysis, Chronic A fib on Coumadin, Pulmonary embolism and Hypertension who was transfer from [facility] for dialysis due to Acute congestive heart failure Patient poor historian with confusion currently. was not present when patient arrived and records gathered from limited documents from [facility]. Nurse reported that patient seems confused and "distant". He was evaluated at the [place] [facility] and had a Chest X ray that showed no pneumonia. Work up at [place] showed Chest X ray finding consistent with Congestive heart failure. BNP elevated. Patient was not on any diuretic therapy and was a dialysis dependent and a request to transfer was discussed with Dr Ang, [employer]. Hospital Course 76 yo man with ESRD on dialysis, Chronic A fib on Coumadin, Pulmonary embolism and Hypertension who was transfer from [facility] for dialysis due to Acute congestive heart failure and needing dialysis. He underwent dialysis on 06/04.Cardiology recommends conservative therapy for his elevated troponins/ NSTEMI. He has received appropriate dialysis with his acute exacerbation of congestive heart failure in the context. Patient has much improved and his is wanting for him to go to a skilled care for rehabilitation. # Acute systolic congestive Heart Failure. Present on admission - clinically improving with dialysis - Echo showing EF 15-20% - further fluid management per nephrology and dialysis # Acute RSV infection - supportive care was provided # Acute NSTEMI - ? if Trop elevated 2ndry to acute ischemia from respiratory status and amplified by underling ESRD : Troponin last night showed similar value 1.05 - appreciate cardiology consult. will f/u w/ recs: Cardiology recommends conservative therapy for his elevated troponins/ NSTEMI. # Tachycardia from 06/06/16 overnight -- 2 g of IV magnesium is administered. Tachycardia has resolved. #Endstage renal disease on dialysis - appreciate nephrology consult. will f/u w/ another round of dialysis on - further dialysis per nephrology - # ? acute aspiration pneumonia. poa - no significant leukocytosis. - procalcitonin only mildly elevated despite ESRD - suspect pulmonary symptoms likely due to RSV - stopped Abx early on this admission. f/u clinically -- Fevers resolved, recheck pro-calcitonin is still elevated. -- Patient is apparently allergy to many many antibiotics. We will start him on Zosyn renally dosed, will consult ID tomorrow -- ID has seen the patient and determined that he does not need antibiotics as there is no clear indication for them # Acute metabolic encephalopathy. Present on admission. Resolved - c/w supportive care and treatments noted - avoid psychoactive medications due to increased risk of Delirium # Chronic Atrial fibrillation on Coumadin - monitor on telemetry - continue Metoprolol for rate control # Supra-therapeutic INR. poa. improving - Pharmacy to manage daily Coumadin dosing Exam Vital Signs (Last) Date Time Temp Pulse Resp B/P Pulse Ox O2 Delivery O2 Flow Rate FiO2 06/08/16 10:53 36.4 112 18 101/61 96 Room Air 06/07/16 20:50 8.00 Exam Gen.: Coughing has resolved HEENT: Normocephalic Neck: Improved JVD specially on the left side Heart: No murmurs, irregular Lungs: Diffuse wheezing and rales Abdomen nondistended Neuro no focal deficits Psychiatric negative for anxiety Test 05/31/16 07:05 06/01/16 07:30 06/02/16 06:35 06/04/16 05:40 Activated Partial Thromboplast Time 43.4sec (22.8-33.0) Thyroid Stimulating Hormone (TSH) 3.670uIU/mL (0.450-4.500) Triglycerides Level 95mg/dL (0-149) Cholesterol Level 92mg/dL (100-199) LDL Cholesterol, Calculated 38.000mg/dL (0-99) VLDL Cholesterol 19.000mg/dL HDL Cholesterol 35mg/dL (>39) Cholesterol/HDL Ratio 2.63 (0.0-4.4) Total Bilirubin 0.8mg/dL (0.0-1.2) Aspartate Amino Transf (AST/SGOT) 39U/L (0-50) Alanine Aminotransferase (ALT/SGPT) 16U/L (0-44) Alkaline Phosphatase 213U/L (25-160) Total Protein 5.8g/dL (6.4-8.4) Albumin 3.3g/dL (3.4-5.0) Phosphorus Level 3.4mg/dL (2.5-4.9) Test 06/07/16 00:09 06/07/16 05:55 06/08/16 05:34 06/08/16 06:20 Troponin T 1.05ug/L (0.0-0.011) Procalcitonin 0.46ng/mL (0.00-0.08) Sodium Level 146mEq/L (134-144) Potassium Level 4.1mEq/L (3.5-5.2) Chloride Level 102mEq/L (97-108) Carbon Dioxide Level 27mmol/L (18-29) Blood Urea Nitrogen 17mg/dL (8-27) Creatinine 2.60mg/dL (0.76-1.27) Estimat Glomerular Filtration Rate 26mL/min (>59) Glucose Level 86mg/dL (60-99) Calcium Level 9.6mg/dL (8.5-10.1) Prothrombin Time 33.5sec (8.1-12.5) Prothromb Time International Ratio 3.06ratio Magnesium Level 1.8mg/dL (1.6-2.6) Test 06/08/16 07:20 White Blood Count 6.3th/mm3 (3.8-10.1) Red Blood Count 3.86mil/mm3 (4.40-5.80) Hemoglobin 10.5g/dL (13.8-17.2) Hematocrit 33.5% (41.0-50.0) Mean Corpuscular Volume 86.8fL (81-100) Mean Corpuscular Hemoglobin 27.2pg (27.0-35.0) Mean Corpuscular Hemoglobin Concent 31.3% (32.0-37.0) Red Cell Distribution Width 19.0% (12.3-15.4) Platelet Count 134bil/L (150-400) Neutrophils (%) (Auto) 79.5% (40-74) Lymphocytes (%) (Auto) 11.7% (14-46) Monocytes (%) (Auto) 7.5% (4-12) Eosinophils (%) (Auto) 0.5% (0-5) Basophils (%) (Auto) 0.3% (0-3) Discharge Medications Discharge Medications Atorvastatin Calcium (Atorvastatin Calcium) 80 Mg Tablet 80 MG PO HS (Reported) Citalopram (Citalopram) 10 Mg Tablet 10 MG PO DAILY (Reported) Cyanocobalamin (Vitamin B12) 500 Mcg Tablet 1,000 MCG PO DAILY (Reported) Fludrocortisone Acetate (Fludrocortisone Acetate) 0.1 Mg Tablet 0.1 MG PO BID ( Reported) Metoprolol Succinate ER (Metoprolol Succinate ER) 50 Mg Tab.er.24h 25 MG PO DAILY (Reported) Midodrine (Midodrine) 5 Mg Tablet 5 MG PO TID (Reported) Omeprazole (Omeprazole) 40 Mg Capsule.dr 40 MG PO DAILY (Reported) Sevelamer Carbonate (Renvela) 800 Mg Tablet 1,600 MG PO TID (Reported) Warfarin Sodium (Coumadin) 1 Mg Tablet 1 MG PO DAILY Prescribed by: HEATHER CHOUDHURY DO As needed Albuterol Neb Soln (Albuterol Neb Soln) 2.5 Mg/3 Ml Vial.neb 2.5 MG NEB Q4H PRN PRN For Shortness of Breath Prescribed by: HEATHER CHOUDHURY DO Diphenoxylate/Atropine 2.5-0.025 mg (Lomotil 2.5-0.025 mg) 1 Each Tablet 1 TABLET PO BID PRN PRN For Diarrhea or Loose Stool Prescribed by: HEATHER CHOUDHURY DO Followup Plan Follow-up plan Patient will be seen by the attending at the [facility] upon admission Follow up with Dr. Barragan/Dr. Ang for dialysis at their dialysis [facility] Please repeat INR ran in 3 days after the discharge Discharge Diet: Other (pureed diet, honey thickened liquids) Discharge Activity: Other (Front wheeled walker) Heather Choudhury DO Jun 08, 2016 11:57
== END 2016-06-08 14:47 | disposition home or self-care (01) | DRG 291 ==
LOC: MPC 04:12
PROVIDERS: ADMIT Hospitalist; ATTEND Hospitalist
PROC: 4A033R1 Measurement of Arterial Saturation, Peripheral, Percutaneous Approach (ICD-10-PCS; principal; 2016-05-31)
DX: I50.23 Acute on chronic systolic (congestive) heart failure (principal); N18.6 End stage renal disease; G93.41 Metabolic encephalopathy; I12.0 Hypertensive chronic kidney disease with stage 5 chronic kidney disease or end stage renal disease; I48.2 Chronic atrial fibrillation; Z79.01 Long term (current) use of anticoagulants; Z99.2 Dependence on renal dialysis; B97.4 Respiratory syncytial virus as the cause of diseases classified elsewhere; Z86.711 Personal history of pulmonary embolism; Z66 Do not resuscitate